=== PATIENT | male | born 1950 | race Caucasian/White ===

== ENCOUNTER 2023-12-01 17:47 | Inpatient (IN) | payer MEDICARE, SELFPAY ==
[2023-12-01 17:54] VITALS: BP 165/79; PULSE 61; RESP 18; TEMP 36.5; O2SAT 93
[2023-12-01 19:15] LABS: Basophils % 0.4 %; Eosinophils # 0.2 10^3/uL (0.0-0.8); Eosinophils % 2.6 %; Lymphocytes % 22.3 %; Mean Corpuscular HGB Conc 32.9 g/dL (30-55); Mean Corpuscular Hemoglobin 27.8 pg (27-33); Mean Corpuscular Volume 84.3 fl (82-101); Mean Platelet Volume 8.2 fL (7.4-10.4); Monocytes # 0.8 10^3/uL (0.2-0.9); Monocytes % 8.5 %; Neutrophils # 5.91 10^3/uL (1.8-7.7); Nucleated Red Blood Cells % 0 %; Platelet Count 151 10^3/cmm (157-399); Red Blood Count 6.05 10^6/uL (3.85-5.65); Red Cell Distribution Width 14.6 % (12.1-15.1); White Blood Count 8.96 10^3/uL (3.29-11.43)
[2023-12-01 19:31] LABS: Alanine Aminotransferase 15 U/L (0-41); Albumin Level 4.3 g/dL (3.5-5.2); Alkaline Phosphatase 69 U/L (40-130); Anion Gap 14.9 (5-19); Aspartate Amino Transferase 17 U/L (0-40); Blood Urea Nitrogen 27 mg/dL (8-23); Calcium 8.7 mg/dL (8.5-10.5); Carbon Dioxide 27 mmol/L (22-29); Chloride 97 mmol/L (98-107); Creatinine Clr Calc Pharmacy 48.2967; Globulin 2.1 g/dL (1.3-4.6); Glucose 103 mg/dL (65-115); Osmolality Calculated 281 mOsm/kg (285-295); Potassium 5.9 mmol/L (3.5-5.1); Sodium 133 mmol/L (136-145); Total Bilirubin 0.6 mg/dL (0.15-1.2); Total Protein 6.4 g/dL (6.6-8.7)
[2023-12-01 19:33] LABS: D Dimer 4.58 ug/mLFEU (0-0.59)
--- NOTE | 2023-12-01 20:48 | ED_ITS ---
Documented by User: Gurjit Almodovar DO 12/02/23 11:31 HPI - Extremity Problem 2 General: Chief complaint: Extremity Problem,Nontraumatic Stated complaint: swollen leg Time Seen by Provider: 12/01/23 20:47 History of Present Illness: Patient presents to the ER with complaints of left lower leg swelling x 1 day. Patient is on Plavix for heart stent he had placed in the past. Patient is never had swelling like this before. Is only the left leg. It is nonpainful to palpate. Nothing seems to make it better or makes it worse. PFSH ED 2 PFSH: Medical History Erectile dysfunction Hypothyroidism Prediabetes Essential (primary) hypertension CAD (coronary artery disease) Surgical History History of heart artery stent x 2 - in 2020 History of angioplasty History of tonsillectomy Family History Father Brain cancer Glaucoma Mother No problems noted. Social History Smoking and tobacco/nicotine status: never used tobacco/nicotine Alcohol intake: current Alcohol intake frequency: few times a month Substance/Drug Use: never Household members: spouse Housing: House Highest education level completed: Bachelor's Degree Current occupational status: retired Physical Exam 2 Const: COMMON NORMALS: no acute distress, average body habitus, patient oriented x3, no limitations, healthy appearing, alert and well nourished HENMT: COMMON NORMALS: normocephalic, atraumatic, hearing grossly normal bilaterally, external ears normal, Normal external nose present, moist oral mucous membranes and oropharynx normal HEAD & SCALP: normocephalic and atraumatic NOSE: Normal external nose present EXTERNAL EAR: Yes external ears normal Neck/C-Spine: COMMON NORMALS: no JVD Chest: COMMONS NORMALS: normal inspection of the chest and normal palpation of entire chest wall Resp: COMMON NORMALS: normal respiratory effort, No retractions, No use of accessory muscles and clear to auscultation bilaterally AUSCULTATION: clear to auscultation bilaterally Cardio: COMMON NORMALS: no JVD, regular rate, regular rhythm, S1 normal heart sound present, S2 normal heart sound present, No gallops present (Cardio), No clicks present (Cardio), No murmurs present (Cardio) and No rub (Cardio) R ATE: regular rate RHYTHM: regular rhythm HEART SOUNDS: S1 normal heart sound present and S2 normal heart sound present Extremity: NARRATIVE EXTREMITY EXAM: Left lower leg edema nontender to palpate, right lower leg normal Neuro: COMMON NORMALS: patient oriented x3 SENSORIUM/ORIENTATION: Yes alert Course 2 Vital Signs: Vital signs: Vital Signs Temperature 97.5 F L 12/04/23 07:52 Pulse Rate 57 L 12/04/23 07:52 Respiratory Rate 20 H 12/04/23 07:52 Blood Pressure 115/69 12/04/23 07:52 Pulse Oximetry 95 12/04/23 07:52 Oxygen Delivery Me thod Room Air 12/04/23 07:52 MDM - Extremity (Nontraumatic) Medical Decision Making Patient lab work done which showed elevated D-dimer, ultrasound of the left lower extremity venous was ordered which showed a extensive blood clot. Patient was handed off to Dr. Cook at shift change. Patient will be admitted. Differential Diagnosis Likely deep vein thrombosis of lower extremity; Unlikely herpes zoster, gout, cellulitis, superficial thrombophlebitis, deep venous thrombosis of upper extremity or lower extremity edema Medical Records I reviewed the patient's medical records. Lab Data I reviewed the patient's lab results. 12/04/23 02:49 12/04/23 02:49 Radiology Impressions Venous Duplex 12/01/23 20:48 IMPRESSION: Extensive deep venous thrombosis seen extending from the left external iliac vein to the veins of the calf. ADDENDUM: 12/01/232226 THIS REPORT CONTAINS FINDINGS THAT MAY BE CRITICAL TO PATIENT CARE. The findings were verbally communicated via telephone conference with Dr. Cook at 10:24 PM CDT on 12/01/2023. The findings were acknowledged and understood. Chest CTA 12/01/23 23:51 IMPRESSION: 1. Right lung largely lower lobe pulmonary emboli, negative for right heart strain given an RV to LV ratio of 0.64. 2. Small hiatal hernia. 3. Right lower lobe superior segment in upper lobe posterior segment subsegmental atelectasis versus minimal infiltrate. 4. Diverticulosis without diverticulitis. ADDENDUM: 12/02/23 0115 THIS REPORT CONTAINS FINDINGS THAT MAY BE CRITICAL TO PATIENT CARE. The findings were verbally communicated via telephone conference with CADE COOK at 1:14 AM CDT on 12/02/2023. The findings were acknowledged and understood. Laboratory Results WBC 8.96 10^3/uL (3.29-11.43) 12/01/23 19:03 RBC 6.05 10^6/uL (3.85-5.65) H 12/01/23 19:03 Hgb 16.80 g/dL (11.27-16.99) 12/01/23 19:03 Hct 51.0 % (37-53) 12/01/23 19:03 MCV 84.3 fl (82-101) 12/01/23 19:03 MCH 27.8 pg (27-33) 12/01/23 19:03 MCHC 32.9 g/dL (30-55) 12/01/23 19:03 RDW 14.6 % (12.1-15.1) 12/01/23 19:03 Plt Count 151 10^3/cmm (157-399) L 12/01/23 19:03 MPV 8.2 fL (7.4-10.4) 12/01/23 19:03 Neut % (Auto) 66.0 % 12/01/23 19:03 Lymph % (Auto) 22.3 % 12/01/23 19:03 Traverse % (Auto) 8.5 % 12/01/23 19:03 Eos % (Auto) 2.6 % 12/01/23 19:03 Baso % (Auto) 0.4 % 12/01/23 19:03 Neut # (Auto) 5.91 10^3/uL (1.8-7.7) 12/01/23 19:03 Lymph # (Auto) 2.0 10^3/uL (0.8-4.8) 12/01/23 19:03 Traverse # (Auto) 0.8 10^3/uL (0.2-0.9) 12/01/23 19:03 Eos # (Auto) 0.2 10^3/uL (0.0-0.8) 12/01/23 19:03 Baso # (Auto) 0.0 10^3/uL (0.0-0.1) 12/01/23 19:03 Nucleated RBC % (auto) 0 % 12/01/23 19:03 Nucleated RBCs # 0.0 /100WBC 12/01/23 19:03 D-Dimer 4.58 ug/mLFEU (0-0.59) H 12/01/23 19:03 Sodium 133 mmol/L (136-145) L 12/01/23 19:03 Potassium 5.9 mmol/L (3.5-5.1) H 12/01/23 19:03 Chloride 97 mmol/L (98-107) L 12/01/23 19:03 Carbon Dioxide 27 mmol/L (22-29) 12/01/23 19:03 Anion Gap 14.9 (5-19) 12/01/23 19:03 BUN 27 mg/dL (8-23) H 12/01/23 19:03 Creatinine 1.4 mg/dL (0.7-1.2) H 12/01/23 19:03 GFR Calculation Not Reportable 12/01/23 19:03 Glucose 103 mg/dL (65-115) 12/01/23 19:03 Estimat Average Glucose 131 12/01/23 19:03 Hemoglobin A1c 6.2 % (4.0-6.0) H 12/01/23 19:03 Calculated Osmolality 281 mOsm/kg (285-295) L 12/01/23 19:03 Calcium 8.7 mg/dL (8.5-10.5) 12/01/23 19:03 Total Bilirubin 0.6 mg/dL (0.15-1.2) 12/01/23 19:03 AST 17 U/L (0-40) 12/01/23 19:03 ALT 15 U/L (0-41) 12/01/23 19:03 Alkaline Phosphatase 69 U/L (40-130) 12/01/23 19:03 Total Protein 6.4 g/dL (6.6-8.7) L 12/01/23 19:03 Albumin 4.3 g/dL (3.5-5.2) 12/01/23 19:03 Globulin 2.1 g/dL (1.3-4.6) 12/01/23 19:03 Vitamin B12 474 pg/mL (232-1245) 12/01/23 19:03 All radiology interpretation(s) finalized by discharge Discharge Plan Discharge Patient Disposition: Admitted As Inpatient Admit Provider: Michael Dumont Clinical Impression: DVT (deep venous thrombosis), Pulmonary embolism Condition: Stable Discharge Diet: Usual diet Discharge Activity: Resume usual activity Coding Level of Care Code ED Preschool Program Director for Chg Fwd Documented by User: Cade Cook MD 12/04/23 13:48 HPI - Extremity Problem 2 General: Chief complaint: Extremity Problem,Nontraumatic Stated complaint: swollen leg Time Seen by Provider: 12/01/23 20:47 Review of Systems 2 General: Reports: 10 or more systems reviewed and unremarkable except in HPI and below Card: Reports: edema (Left lower leg) PFSH ED 2 PFSH: Medical History Erectile dysfunction Hypothyroidism Prediabetes Essential (primary) hypertension CAD (coronary artery disease) Surgical History History of heart artery stent x 2 - in 2020 History of angioplasty History of tonsillectomy Family History Father Brain cancer Glaucoma Mother No problems noted. Social History Smoking and tobacco/nicotine status: never used tobacco/nicotine Alcohol intake: current Alcohol intake frequency: few times a month Substance/Drug Use: never Household members: spouse Housing: House Highest education level completed: Bachelor's Degree Current occupational status: retired Course 2 Vital Signs: Vital signs: Vital Signs Temperature 97.5 F L 12/04/23 07:52 Pulse Rate 57 L 12/04/23 07:52 Respiratory Rate 20 H 12/04/23 07:52 Blood Pressure 115/69 12/04/23 07:52 Pulse Oximetry 95 12/04/23 07:52 Oxygen Delivery Me thod Room Air 12/04/23 07:52 MDM - Extremity (Nontraumatic) Medical Decision Making Patient lab work done which showed elevated D-dimer, ultrasound of the left lower extremity venous was ordered which showed a extensive blood clot. Patient was handed off to Dr. Cook at shift change. Patient will be admitted. I have discussed the patient's case with the off going physician <Dr. Almodovar > and I have assumed care of the patient. We have discussed the current lab/radiographic results that have been resulted and the pending tests. Lab Data 12/04/23 02:49 12/04/23 02:49 Radiology Impressions Venous Duplex 12/01/23 20:48 IMPRESSION: Extensive deep venous thrombosis seen extending from the left external iliac vein to the veins of the calf. ADDENDUM: 12/01/23 2227 THIS REPORT CONTAINS FINDINGS THAT MAY BE CRITICAL TO PATIENT CARE. The findings were verbally communicated via telephone conference with Dr. Cook at 10:24 PM CDT on 12/01/2023. The findings were acknowledged and understood. Chest CTA 12/01/23 23:51 IMPRESSION: 1. Right lung largely lower lobe pulmonary emboli, negative for right heart strain given an RV to LV ratio of 0.64. 2. Small hiatal hernia. 3. Right lower lobe superior segment in upper lobe posterior segment subsegmental atelectasis versus minimal infiltrate. 4. Diverticulosis without diverticulitis. ADDENDUM: 12/02/23 0115 THIS REPORT CONTAINS FINDINGS THAT MAY BE CRITICAL TO PATIENT CARE. The findings were verbally communicated via telephone conference with CADE COOK at 1:14 AM CDT on 12/02/2023. The findings were acknowledged and understood. Laboratory Results WBC 8.96 10^3/uL (3.29-11.43) 12/01/23 19:03 RBC 6.05 10^6/uL (3.85-5.65) H 12/01/23 19:03 Hgb 16.80 g/dL (11.27-16.99) 12/01/23 19:03 Hct 51.0 % (37-53) 12/01/23 19:03 MCV 84.3 fl (82-101) 12/01/23 19:03 MCH 27.8 pg (27-33) 12/01/23 19:03 MCHC 32.9 g/dL (30-55) 12/01/23 19:03 RDW 14.6 % (12.1-15.1) 12/01/23 19:03 Plt Count 151 10^3/cmm (157-399) L 12/01/23 19:03 MPV 8.2 fL (7.4-10.4) 12/01/23 19:03 Neut % (Auto) 66.0 % 12/01/23 19:03 Lymph % (Auto) 22.3 % 12/01/23 19:03 Traverse % (Auto) 8.5 % 12/01/23 19:03 Eos % (Auto) 2.6 % 12/01/23 19:03 Baso % (Auto) 0.4 % 12/01/23 19:03 Neut # (Auto) 5.91 10^3/uL (1.8-7.7) 12/01/23 19:03 Lymph # (Auto) 2.0 10^3/uL (0.8-4.8) 12/01/23 19:03 Traverse # (Auto) 0.8 10^3/uL (0.2-0.9) 12/01/23 19:03 Eos # (Auto) 0.2 10^3/uL (0.0-0.8) 12/01/23 19:03 Baso # (Auto) 0.0 10^3/uL (0.0-0.1) 12/01/23 19:03 Nucleated RBC % (auto) 0 % 12/01/23 19:03 Nucleated RBCs # 0.0 /100WBC 12/01/23 19:03 D-Dimer 4.58 ug/mLFEU (0-0.59) H 12/01/23 19:03 Sodium 133 mmol/L (136-145) L 12/01/23 19:03 Potassium 5.9 mmol/L (3.5-5.1) H 12/01/23 19:03 Chloride 97 mmol/L (98-107) L 12/01/23 19:03 Carbon Dioxide 27 mmol/L (22-29) 12/01/23 19:03 Anion Gap 14.9 (5-19) 12/01/23 19:03 BUN 27 mg/dL (8-23) H 12/01/23 19:03 Creatinine 1.4 mg/dL (0.7-1.2) H 12/01/23 19:03 GFR Calculation Not Reportable 12/01/23 19:03 Glucose 103 mg/dL (65-115) 12/01/23 19:03 Estimat Average Glucose 131 12/01/23 19:03 Hemoglobin A1c 6.2 % (4.0-6.0) H 12/01/23 19:03 Calculated Osmolality 281 mOsm/kg (285-295) L 12/01/23 19:03 Calcium 8.7 mg/dL (8.5-10.5) 12/01/23 19:03 Total Bilirubin 0.6 mg/dL (0.15-1.2) 12/01/23 19:03 AST 17 U/L (0-40) 12/01/23 19:03 ALT 15 U/L (0-41) 12/01/23 19:03 Alkaline Phosphatase 69 U/L (40-130) 12/01/23 19:03 Total Protein 6.4 g/dL (6.6-8.7) L 12/01/23 19:03 Albumin 4.3 g/dL (3.5-5.2) 12/01/23 19:03 Globulin 2.1 g/dL (1.3-4.6) 12/01/23 19:03 Vitamin B12 474 pg/mL (232-1245) 12/01/23 19:03 Discharge Plan Discharge Patient Disposition: Admitted As Inpatient Admit Provider: Micahel Dumont Clinical Impression: DVT (deep venous thrombosis), Pulmonary embolism Condition: Stable Discharge Diet: Usual diet Discharge Activity: Resume usual activity Coding Level of Care Code ED Preschool Program Director for Barbie Diaz
--- NOTE | 2023-12-01 20:48 | USR_ITS ---
PROCEDURE INFORMATION: Exam: US Duplex Left Lower Extremity Veins, Limited Exam date and time: 12/01/2023 9:39 PM Age: 73 years old Clinical indication: Edema, localized; Lower extremity, left; Additional info: Left leg swelling, elevated d dimer TECHNIQUE: Imaging protocol: Real-time duplex ultrasound of the left extremity with 2-D field scale, color Doppler flow and spectral waveform analysis including responses to compression and other maneuvers (when performed) with image documentation. Limited exam focused on the left lower extremity veins. COMPARISON: No relevant prior studies available. FINDINGS: Left deep veins: Extensive deep venous thrombosis seen extending from the left external iliac vein to the veins of the calf. Superficial veins: Greater saphenous vein at the saphenofemoral junction is patent without thrombus. Soft tissues: Unremarkable. US/CV venous duplex [facility] [id number] IMPRESSION: Extensive deep venous thrombosis seen extending from the left external iliac vein to the veins of the calf.
[2023-12-01 21:06] VITALS: BP 155/80; PULSE 54; RESP 18; O2SAT 96
[2023-12-01 22:22] VITALS: BP 148/73; PULSE 56; RESP 18; O2SAT 94
[2023-12-01 22:30] VITALS: BP 117/69; RESP 18; O2SAT 94
[2023-12-01 23:15] VITALS: PULSE 54; O2SAT 93
--- NOTE | 2023-12-01 23:43 | P.HP_ITS ---
Providers/Chief Complaint 2 Primary Care Provider: Jessica Godwin DO Chief Complaint: swollen leg History of Present Illness Lucas Hemphill is a 73 year old male who has recently moved from [place] to [place], patient is stating that he has had multiple trips back and forth duration of trip would be [address], his latest trip was 3 weeks ago, today he woke up not feeling well when he was changing close he noticed his left leg was extremely swollen which was not the case when he went to bed, he has not noticed any chest pain shortness of breath or fever. Stating that his heart rate is always below 60 because he was applied. He carries history of coronary disease with placement of stent few months ago, he is on dual antiplatelet therapy, does not smoke or drink alcohol. Consider himself very active for his age. No history of thrombophilia in the family siblings are healthy. Parents are alive as well. In the ER he has been diagnosed with extensive DVT of left leg I have requested CTA chest, will do heparin bolus Had gwyn discussion with the patient that we are requesting echo and CTA chest but looking at the extensive DVT he might need vascular surgery consult and probably need [place] transfer for thrombolysis but patient is stating that he is okay staying in this hospital to finish the workup, his PCP is Dr. Godwin Review of Systems 2 Const: Denies: fever(s) Eyes: Denies: change in vision ENMT: Denies: throat pain Card: Denies: chest pain Resp: Denies: dyspnea GI: Denies: coffee ground emesis : Denies: flank pain Musc: Reports: extremity pain Skin/Breast: Denies: rash Neuro: Denies: headache(s) Psych: Reports: anxiety Medications/Allergies Home Medications Medication Instructions Recorded Confirmed Last Taken Type aspirin 81 mg tablet,delayed 81 mg PO DAILY 11/08/23 11/08/23 Unknown History release cholecalciferol (vitamin D3) 50 50 mcg PO DAILY 11/08/23 11/08/23 Unknown History mcg (2,000 unit) capsule clopidogrel 75 mg tablet 75 mg PO DAILY #90 tabs 11/08/23 11/08/23 Unknown Rx empagliflozin 10 mg tablet 10 mg PO QAM 11/08/23 11/08/23 Unknown History (Jardiance) levothyroxine 175 mcg tablet 175 mcg PO DAILY 11/08/23 11/08/23 Unknown History lisinopril 20 mg tablet 20 mg PO DAILY 11/08/23 11/08/23 Unknown History magnesium 250 mg tablet 250 mg PO DAILY 11/08/23 11/08/23 Unknown History mecobalamin (vitamin B12) 1,000 1,000 mcg PO DAILY 11/08/23 11/08/23 Unknown History mcg lozenges metoprolol succinate 25 mg 25 mg PO DAILY #90 tabs 11/08/23 11/08/23 Unknown Rx tablet,extended release 24 hr omega-3 fatty acids 1,000 mg 1,000 mg PO DAILY 11/08/23 11/08/23 Unknown History capsule rosuvastatin 40 mg tablet 40 mg PO DAILY 11/08/23 11/08/23 Unknown History tadalafil 5 mg tablet (Cialis) 5 mg PO DAILY 11/08/23 11/08/23 Unknown History ranolazine 1,000 mg 1,000 mg PO BID #60 tabs 11/10/23 Unknown Rx tablet,extended release,12 hr Allergies Allergy/AdvReac Type Severity Reaction Status Date / Time Penicillins Allergy Mild rash Verified 11/08/23 13:38 PFSH Acute 2 PFSH: Medical History Erectile dysfunction Hypothyroidism Prediabetes Essential (primary) hypertension CAD (coronary artery disease) Surgical History History of heart artery stent x 2 - in 2020 History of angioplasty History of tonsillectomy Family History Father Brain cancer Glaucoma Mother No problems noted. Social History Smoking and tobacco/nicotine status: never used tobacco/nicotine Alcohol intake: current Alcohol intake frequency: few times a month Substance/Drug Use: never Household members: spouse Housing: House Highest education level completed: Bachelor's Degree Current occupational status: retired Vitals/I&O/Wt Last Vital Signs Temp 97.7 F 12/01/23 17:54 Pulse 54 L 12/01/23 23:15 Resp 18 12/01/23 22:30 BP 117/69 12/01/23 22:30 Pulse Ox 93 12/01/23 23:15 O2 Del Method Room Air 12/01/23 23:15 Weight last 48 hrs Weight 79.832 kg Physical Exam 2 Narrative: Patient is awake and alert GCS 15 Euvolemic Well-built male Nonfocal neuroexam S1, S2 Left leg is swollen No signs of erythema Pleasant cooperative No active chest pain Data 12/01/23 19:03 12/01/23 19:03 A&P Assessment and plan (1) Prediabetes: (2) Hypothyroidism: Qualifiers: Hypothyroidism type: acquired Qualified Code(s): E03.9 - Hypothyroidism, unspecified (3) DVT (deep venous thrombosis): (4) CESAR (acute kidney injury): (5) Hyperkalemia: Plan Left leg DVT Seems to be provoked secondary to frequent [id number] traveling from [place] to [place] I will also request echo and CTA chest Patient is hemodynamically stable Bradycardia secondary to metoprolol that he takes, patient stating that he is type A personality that is why he needs metoprolol otherwise he feels edgy I will hold off on metoprolol for now I did convey my concerns regarding cardiac complication of saddle embolism massive PE considering extensive DVT patient is okay with staying here getting the workup done Most likely at the time of discharge she will need therapeutic Eliquis dose I will require serial troponin and EKGs for now Monitor blood pressure Full code Cardiac diet Start heparin drip Patient does not carry any history of cancer Acute kidney injury I do not have previous creatinine to compare his kidney function Clinically patient looks dehydrated Hyperkalemia: Given Kayexalate and insulin Hold nephrotoxic agent such as lisinopril His past medical history consistent with hypertension, hypothyroidism, coronary disease and diabetes Attestations 2 Medical Necessity Statement*: More than 2 midnights anticipated Diagnoses Prediabetes R73.03 Acquired hypothyroidism E03.9 Hypothyroidism type: acquired DVT (deep venous thrombosis) I82.409 CESAR (acute kidney injury) N17.9 Hyperkalemia E87.5
--- NOTE | 2023-12-01 23:51 | CTR_ITS ---
PROCEDURE INFORMATION: Exam: CTA Chest With Contrast Exam date and time: 12/02/2023 12:39 AM Age: 73 years old Clinical indication: Cough; Additional info: Cough with h/o dvt and confirmed clot extension TECHNIQUE: Imaging protocol: Computed tomographic angiography of the chest with contrast. Exam focused on the arteries. 3D rendering (Not supervised by radiologist): MIP and/or 3D reconstructed images were created by the technologist. Radiation optimization: All CT scans at this facility use at least one of these dose optimization techniques: automated exposure control; mA and/or kV adjustment per patient size (includes targeted exams where dose is matched to clinical indication); or iterative reconstruction. Contrast material: OMNI 350; Contrast volume: 80 ml; Contrast route: INTRAVENOUS (IV); COMPARISON: No relevant prior studies available. RADIATION DOSE METRICS: Total DLP (mGy-cm): 387.62 FINDINGS: Pulmonary arteries: Right lung largely lower lobe pulmonary emboli, negative for right heart strain given an RV to LV ratio of 0.64. Aorta: Unremarkable. No aortic aneurysm. No aortic dissection. Lungs: Right lower lobe superior segment in upper lobe posterior segment subsegmental atelectasis versus minimal infiltrate. Pleural spaces: Unremarkable. No pneumothorax. No pleural effusion. Heart: Unremarkable. No cardiomegaly. No pericardial effusion. Lymph nodes: Unremarkable. No enlarged lymph nodes. Diaphragm: Small hiatal hernia. Stomach and bowel: Diverticulosis without diverticulitis. Bones/joints: Unremarkable. No acute fracture. Soft tissues: Unremarkable. CT/CT angio chest PE protcl [id number] IMPRESSION: 1. Right lung largely lower lobe pulmonary emboli, negative for right heart strain given an RV to LV ratio of 0.64. 2. Small hiatal hernia. 3. Right lower lobe superior segment in upper lobe posterior segment subsegmental atelectasis versus minimal infiltrate. 4. Diverticulosis without diverticulitis.
[2023-12-02] VITALS (10 sets, daily range): BP systolic 115–148; BP diastolic 70–90; PULSE 57–91; RESP 14–18; TEMP 36.4–36.8; O2SAT 89–95; BMI 28.5; BMI 27.6
[2023-12-02] MEDS: heparin 5,000 unit/mL INJ 1 mL 4000 UNIT IVP (00:06)
[2023-12-02] MEDS: iohexol 350 mg/mL 500 mL Btl (per mL) IV (00:45)
[2023-12-02] MEDS: insulin regular-human 100 units/1 mL 10 UNIT IVP (00:47)
[2023-12-02] MEDS: sodium polystyrene sulfonate 15 gm/60 mL Btl PO (00:48)
[2023-12-02] MEDS: glucose 40% Gel 15 gm UDC PO (00:48)
[2023-12-02] MEDS: heparin drip 25,000 UNIT/500 ML PREMIX 19.1600000000000001 UNIT IV (00:49)
--- NOTE | 2023-12-02 01:00 | USCV_ITS ---
Lucas Hemphill Age: 73 Gender: M : 1950 Exam Date: 12/02/2023 02:43 Ordering Phys: Michael Dumont MD Technologist: RISHI [place] [facility] [place]: pulmonary emboli, extensive, heavy-burden DVT LLE. No history of cardiac intervention. BP: 148 / 80 HR: 62 Rhythm: Sinus Technical Quality: Adequate MEASUREMENTS (Male / Female) Normal Values 2D ECHO LV Diastolic Diameter PLAX 4.8 cm 4.2 - 5.9 / 3.9 - 5.3 cm IVS Diastolic Thickness 1.3 cm 0.6 - 1.0 / 0.6 - 0.9 cm IVS Systolic Thickness 2.1 cm LVPW Diastolic Thickness 1.3 cm 0.6 - 1.0 / 0.6 - 0.9 cm LVPW Systolic Thickness 2.0 cm LVOT Diameter 1.9 cm LV Ejection Fraction 2D Teich 73.9 % LV Ejection Fraction MOD 2C 68.2 % LV Ejection Fraction 2C AL 71.3 % LA Diameter 3.9 cm Aorta at Sinotubular Diameter 2.9 cm IVC Diameter 1.2 cm M-MODE LA Ao Ratio MM 1.2 AV Cusp Separation MM 2.1 cm DOPPLER AV Peak Velocity 123.0 cm/s LVOT Peak Velocity 103.0 cm/s AV Area Cont Eq vti 2.3 cm squared AV Area Cont Eq pk 2.3 cm squared MV Peak Velocity 104.0 cm/s MV Area PHT 2.9 cm squared Mitral E to A Ratio 0.8 TV Peak E Velocity 48.0 cm/s PV Peak Velocity 121.0 cm/s FINDINGS Left Ventricle Normal left ventricular size and systolic function, EF 68%.. No regional wall motion abnormalities. Mild left ventricular hypertrophy. Grade I/IV diastolic dysfunction (abnormal relaxation filling pattern), normal to mildly elevated filling pressures. Right Ventricle The right ventricle is normal in size and function. Right Atrium The right atrium is normal in size. Left Atrium Mildly increased left atrial size. Mitral Valve No gross abnormalities noted no gross abnormalities noted Aortic Valve Trace aortic valve regurgitation. Tricuspid Valve No gross abnormalities noted Pulmonic Valve Trace pulmonary valve regurgitation. Pericardium Normal pericardium without effusion. Aorta Normal ascending aorta dimension. IVC Normal inferior vena cava. CONCLUSIONS Normal left ventricular size and systolic function, EF 68%.. No regional wall motion abnormalities. Mild left ventricular hypertrophy. Grade I/IV diastolic dysfunction (abnormal relaxation filling pattern), normal to mildly elevated filling pressures. Mildly increased left atrial size. Trace aortic valve regurgitation. Trace pulmonary valve regurgitation. There is no pericardial effusion. There are no intracardiac masses. No similar previous studies are available for comparison Dr Davian Alegria MD [facility] (Electronically Signed) Final Date: 02 December 2023 09:34 S
[2023-12-02 01:27] LABS: Estmated Average Glucose 131; Hemoglobin A1C 6.2 % (4.0-6.0)
[2023-12-02] MEDS: heparin drip 25,000 UNIT/500 ML PREMIX 22.3500000000000014 UNIT IV (01:31)
[2023-12-02 01:47] LABS: Vitamin B12 474 pg/mL (232-1245)
[2023-12-02 07:27] LABS: Basophils % 0.6 %; Eosinophils # 0.3 10^3/uL (0.0-0.8); Lymphocytes # 1.8 10^3/uL (0.8-4.8); Lymphocytes % 27.2 %; Mean Corpuscular HGB Conc 32.7 g/dL (30-55); Mean Corpuscular Hemoglobin 27.7 pg (27-33); Mean Corpuscular Volume 84.7 fl (82-101); Mean Platelet Volume 8.3 fL (7.4-10.4); Monocytes # 0.5 10^3/uL (0.2-0.9); Monocytes % 7.8 %; Neutrophils # 4.07 10^3/uL (1.8-7.7); Neutrophils % 60.1 %; Nucleated Red Blood Cells % 0 %; Platelet Count 124 10^3/cmm (157-399); Red Blood Count 6.02 10^6/uL (3.85-5.65); White Blood Count 6.77 10^3/uL (3.29-11.43)
[2023-12-02 07:51] LABS: Magnesium 2.1 mg/dL (1.7-2.3); Phosphorus 3.7 mg/dL (2.5-4.5)
[2023-12-02 07:52] LABS: Anion Gap 14.4 (5-19); Blood Urea Nitrogen 20 mg/dL (8-23); C Reactive Protein 8.9 mg/L (0.0-4.9); Calcium 8.7 mg/dL (8.5-10.5); Carbon Dioxide 24 mmol/L (22-29); Chloride 99 mmol/L (98-107); Creatinine Clr Calc Pharmacy 61.4686; Glucose 107 mg/dL (65-115); Osmolality Calculated 279 mOsm/kg (285-295); Potassium 4.4 mmol/L (3.5-5.1); Sodium 133 mmol/L (136-145)
[2023-12-02 08:00] LABS: Partial Thromboplastin Time 98.6 SECONDS (23.9-36.7)
[2023-12-02] MEDS: atorvastatin 40 mg Tablet 80 MG PO (09:22)
[2023-12-02] MEDS: levothyroxine 175 mcg Tablet PO (09:22)
--- NOTE | 2023-12-02 13:55 | PC.SOCIAL ---
IMM Update pg 2 of IMM updated and reviewed w/ patient. Copy provided and Copy dated, initialed and placed in chart.
--- NOTE | 2023-12-02 16:05 | P.PN_ITS ---
Subjective 2 Subjective: Overnight labs and H&P reviewed. Left leg continues to be swollen. No aberrant progression compared to yesterday. CTA of the chest revealed right-sided lower lobe PE. No evidence of right heart strain Medications: Reviewed: Yes Vitals/I&O/Wt Last Vital Signs Temp 98.3 F 12/02/23 11:56 Pulse 79 12/02/23 11:56 Resp 16 12/02/23 11:56 BP 127/74 12/02/23 11:56 Pulse Ox 93 12/02/23 11:56 O2 Del Method Room Air 12/02/23 11:56 12/02/23 12/02/23 12/02/23 06:59 14:59 22:59 Intake Total 240 / 240 661.78 / 661.78 Output Total 680 / 680 Balance 240 / 240 -18.22 / -18.22 Weight last 48 hrs Weight 79.832 kg Weight 82.554 kg Weight 79.832 kg Physical Exam 2 Narrative: General: No acute distress, AO x3 HEENT: PERRLA, pupils bilaterally equal and reactive, pallors not present Chest: Normal vesicular breath sounds, no added sounds, equal good air entry bilaterally CVS: S1-S2 regular, no murmurs, no tachycardia, no gallops, no rubs Abdomen: Soft, nontender, no organomegaly, bowel sounds present Neuro: No focal deficits, no facial deformity, AO x3, power 5/5 in all limbs Extremities: Left leg swollen, erythematous, warm compared to the right side. No signs of cerulea phlegmasia Dolens Data 12/02/23 07:18 12/02/23 07:18 Other data: Radiology Impressions Venous Duplex 12/01/23 20:48 IMPRESSION: Extensive deep venous thrombosis seen extending from the left external iliac vein to the veins of the calf. ADDENDUM: 12/01/232226 THIS REPORT CONTAINS FINDINGS THAT MAY BE CRITICAL TO PATIENT CARE. The findings were verbally communicated via telephone conference with Dr. Grier at 10:24 PM CDT on 12/01/2023. The findings were acknowledged and understood. Chest CTA 12/01/23 23:51 IMPRESSION: 1. Right lung largely lower lobe pulmonary emboli, negative for right heart strain given an RV to LV ratio of 0.64. 2. Small hiatal hernia. 3. Right lower lobe superior segment in upper lobe posterior segment subsegmental atelectasis versus minimal infiltrate. 4. Diverticulosis without diverticulitis. ADDENDUM: 12/02/23 0115 THIS REPORT CONTAINS FINDINGS THAT MAY BE CRITICAL TO PATIENT CARE. The findings were verbally communicated via telephone conference with RODRIGUEZ GRIER at 1:14 AM CDT on 12/02/2023. The findings were acknowledged and understood. Laboratory Results WBC 6.77 10^3/uL (3.29-11.43) 12/02/23 07:18 RBC 6.02 10^6/uL (3.85-5.65) H 12/02/23 07:18 Hgb 16.70 g/dL (11.27-16.99) 12/02/23 07:18 Hct 51.0 % (37-53) 12/02/23 07:18 MCV 84.7 fl (82-101) 12/02/23 07:18 MCH 27.7 pg (27-33) 12/02/23 07:18 MCHC 32.7 g/dL (30-55) 12/02/23 07:18 RDW 15.0 % (12.1-15.1) 12/02/23 07:18 Plt Count 124 10^3/cmm (157-399) L 12/02/23 07:18 MPV 8.3 fL (7.4-10.4) 12/02/23 07:18 Neut % (Auto) 60.1 % 12/02/23 07:18 Lymph % (Auto) 27.2 % 12/02/23 07:18 [place] % (Auto) 7.8 % 12/02/23 07:18 Eos % (Auto) 4.0 % 12/02/23 07:18 Baso % (Auto) 0.6 % 12/02/23 07:18 Neut # (Auto) 4.07 10^3/uL (1.8-7.7) 12/02/23 07:18 Lymph # (Auto) 1.8 10^3/uL (0.8-4.8) 12/02/23 07:18 [place] # (Auto) 0.5 10^3/uL (0.2-0.9) 12/02/23 07:18 Eos # (Auto) 0.3 10^3/uL (0.0-0.8) 12/02/23 07:18 Baso # (Auto) 0.0 10^3/uL (0.0-0.1) 12/02/23 07:18 Nucleated RBC % (auto) 0 % 12/02/23 07:18 Nucleated RBCs # 0.0 /100WBC 12/02/23 07:18 APTT 98.6 SECONDS (23.9-36.7) H 12/02/23 07:18 D-Dimer 4.58 ug/mLFEU (0-0.59) H 12/01/23 19:03 Sodium 133 mmol/L (136-145) L 12/02/23 07:18 Potassium 4.4 mmol/L (3.5-5.1) 12/02/23 07:18 Chloride 99 mmol/L (98-107) 12/02/23 07:18 Carbon Dioxide 24 mmol/L (22-29) 12/02/23 07:18 Anion Gap 14.4 (5-19) 12/02/23 07:18 BUN 20 mg/dL (8-23) 12/02/23 07:18 Creatinine 1.1 mg/dL (0.7-1.2) 12/02/23 07:18 GFR Calculation Not Reportable 12/02/23 07:18 Glucose 107 mg/dL (65-115) 12/02/23 07:18 Estimat Average Glucose 131 12/01/23 19:03 Hemoglobin A1c 6.2 % (4.0-6.0) H 12/01/23 19:03 Calculated Osmolality 279 mOsm/kg (285-295) L 12/02/23 07:18 Calcium 8.7 mg/dL (8.5-10.5) 12/02/23 07:18 Phosphorus 3.7 mg/dL (2.5-4.5) 12/02/23 07:18 Magnesium 2.1 mg/dL (1.7-2.3) 12/02/23 07:18 Total Bilirubin 0.6 mg/dL (0.15-1.2) 12/01/23 19:03 AST 17 U/L (0-40) 12/01/23 19:03 ALT 15 U/L (0-41) 12/01/23 19:03 Alkaline Phosphatase 69 U/L (40-130) 12/01/23 19:03 C-Reactive Protein 8.9 mg/L (0.0-4.9) H 12/02/23 07:18 Total Protein 6.4 g/dL (6.6-8.7) L 12/01/23 19:03 Albumin 4.3 g/dL (3.5-5.2) 12/01/23 19:03 Globulin 2.1 g/dL (1.3-4.6) 12/01/23 19:03 Vitamin B12 474 pg/mL (232-1245) 12/01/23 19:03 A&P Assessment and plan (1) Prediabetes: (2) Hypothyroidism: Qualifiers: Hypothyroidism type: acquired Qualified Code(s): E03.9 - Hypothyroidism, unspecified (3) DVT (deep venous thrombosis): Qualifiers: Affected thrombotic vein of extremity: unspecified vein of extremity C hronicity: acute DVT location: lower extremity Laterality: left Qualified Code(s): I82.402 - Acute embolism and thrombosis of unspecified deep veins of left lower extremity (4) CESAR (acute kidney injury): (5) Hyperkalemia: Plan Left leg DVT Seems to be provoked secondary to frequent [id number] traveling from [place] to [place] I will also request echo and CTA chest Patient is hemodynamically stable Bradycardia secondary to metoprolol that he takes, patient stating that he is type A personality that is why he needs metoprolol otherwise he feels edgy I will hold off on metoprolol for now I did convey my concerns regarding cardiac complication of saddle embolism massive PE considering extensive DVT patient is okay with staying here getting the workup done Most likely at the time of discharge she will need therapeutic Eliquis dose I will require serial troponin and EKGs for now Monitor blood pressure Full code Cardiac diet Start heparin drip Patient does not carry any history of cancer Acute kidney injury I do not have previous creatinine to compare his kidney function Clinically patient looks dehydrated Hyperkalemia: Given Kayexalate and insulin Hold nephrotoxic agent such as lisinopril His past medical history consistent with hypertension, hypothyroidism, coronary disease and diabetes Plan for today December 02, 2023. Patient noted to have extensive left lower extremity DVT and also her right lower lobe PE. No signs of right heart strain. Plan to continue heparin drip for 48 hours given high risk of progression given extensive lower extremity DVT. Should patient continue to show clinical stability at 48 hours plan to transition to oral Eliquis at the time of discharge. Currently saturating well on room air. Patient reports a history of coronary artery disease, last stent was placed over 4 years ago. He is currently on aspirin and Plavix. Plan to change to Plavix and Eliquis at time of discharge with discontinuation of aspirin. Attestations 2 Medical Necessity Statement*: Continued admission for anticoagulation, heparin drip, close monitoring for any progression of VTE. Coding Level of Care Code Acute Code for Chg Fwd High MDM includes number and complexity of problems actively addressed during encounter, amount and/or complexity of data reviewed/ordered and described risk of complication, morbidity or mortality of management as documented Diagnoses Prediabetes R73.03 Acquired hypothyroidism E03.9 Hypothyroidism type: acquired DVT (deep venous thrombosis) I82.402 Affected thrombotic vein of extremity: unspecified vein of extremity Chronicity: acute DVT location: lower extremity Laterality: left CESAR (acute kidney injury) N17.9 Hyperkalemia E87.5
[2023-12-02 19:46] LABS: Partial Thromboplastin Time 43.5 SECONDS (23.9-36.7)
[2023-12-02] MEDS: heparin 5,000 unit/mL INJ 1 mL IV (20:28)
--- NOTE | 2023-12-02 21:13 | PC.NURSE ---
patient had two active heparin gtt orders. called and got the order to dc the heparin gtt from the ER on 12/01/21. the patient had been titrated and running off the current approved protocol/ gtt order since his arrival on the floor at 0100 12/02/23. the ER heparin gtt order was marked as wasted in NOV and discontinued at 1930.
[2023-12-03] VITALS (9 sets, daily range): BP systolic 107–144; BP diastolic 63–77; PULSE 55–76; RESP 15–18; TEMP 36.4–36.9; O2SAT 92–97
[2023-12-03 02:02] LABS: Basophils % 0.4 %; Eosinophils # 0.3 10^3/uL (0.0-0.8); Eosinophils % 3.8 %; Hematocrit 49.1 % (37-53); Lymphocytes # 1.9 10^3/uL (0.8-4.8); Lymphocytes % 27.9 %; Mean Corpuscular Hemoglobin 27.9 pg (27-33); Mean Corpuscular Volume 84.5 fl (82-101); Mean Platelet Volume 7.8 fL (7.4-10.4); Monocytes # 0.6 10^3/uL (0.2-0.9); Monocytes % 8.7 %; Neutrophils # 4.03 10^3/uL (1.8-7.7); Neutrophils % 59.1 %; Nucleated Red Blood Cells % 0 %; Platelet Count 118 10^3/cmm (157-399); Red Blood Count 5.81 10^6/uL (3.85-5.65); Red Cell Distribution Width 14.8 % (12.1-15.1); White Blood Count 6.82 10^3/uL (3.29-11.43)
[2023-12-03] MEDS: heparin drip 25,000 UNIT/500 ML PREMIX 20 UNIT IV (02:07)
[2023-12-03 02:26] LABS: Alanine Aminotransferase 13 U/L (0-41); Albumin Level 3.8 g/dL (3.5-5.2); Alkaline Phosphatase 59 U/L (40-130); Anion Gap 11.2 (5-19); Aspartate Amino Transferase 15 U/L (0-40); Blood Urea Nitrogen 17 mg/dL (8-23); Calcium 8.4 mg/dL (8.5-10.5); Carbon Dioxide 28 mmol/L (22-29); Chloride 102 mmol/L (98-107); Creatinine Clr Calc Pharmacy 67.6154; Globulin 2.2 g/dL (1.3-4.6); Glucose 96 mg/dL (65-115); Osmolality Calculated 285 mOsm/kg (285-295); Potassium 4.2 mmol/L (3.5-5.1); Sodium 137 mmol/L (136-145); Total Bilirubin 0.5 mg/dL (0.15-1.2)
[2023-12-03 09:27] LABS: Partial Thromboplastin Time 51.5 SECONDS (23.9-36.7)
[2023-12-03] MEDS: levothyroxine 175 mcg Tablet PO (10:04)
[2023-12-03] MEDS: atorvastatin 40 mg Tablet 80 MG PO (10:04)
--- NOTE | 2023-12-03 15:22 | P.PN_ITS ---
Subjective 2 Subjective: His leg is improving today. reduce swelling. Reduced erythema. He has been able to walk and ambulate without difficulty.. Medications: Reviewed: Yes Vitals/I&O/Wt Last Vital Signs Temp 97.5 F L 12/03/23 08:00 Pulse 61 12/03/23 08:00 Resp 16 12/03/23 08:00 BP 144/76 12/03/23 08:00 Pulse Ox 93 12/03/23 08:00 O2 Del Method Room Air 12/03/23 08:00 12/03/23 12/03/23 12/03/23 06:59 14:59 22:59 Intake Total 127.333 / 1958.746 254.8 / 254.8 Balance 127.333 / 1278.746 254.8 / 254.8 Weight last 48 hrs Weight 81.845 kg Weight 79.832 kg Weight 82.554 kg Weight 79.832 kg Physical Exam 2 Narrative: General: No acute distress, AO x3 HEENT: PERRLA, pupils bilaterally equal and reactive, pallors not present Chest: Normal vesicular breath sounds, no added sounds, equal good air entry bilaterally CVS: S1-S2 regular, no murmurs, no tachycardia, no gallops, no rubs Abdomen: Soft, nontender, no organomegaly, bowel sounds present Neuro: No focal deficits, no facial deformity, AO x3, power 5/5 in all limbs Extremities: Left leg swollen, erythematous, warm compared to the right side. improved over yesterday Data 12/03/23 01:54 12/03/23 01:54 A&P Assessment and plan (1) Prediabetes: (2) Hypothyroidism: Qualifiers: Hypothyroidism type: acquired Qualified Code(s): E03.9 - Hypothyroidism, unspecified (3) DVT (deep venous thrombosis): Qualifiers: Affected thrombotic vein of extremity: unspecified vein of extremity C hronicity: acute DVT location: lower extremity Laterality: left Qualified Code(s): I82.402 - Acute embolism and thrombosis of unspecified deep veins of left lower extremity (4) CESAR (acute kidney injury): (5) Hyperkalemia: Plan Left leg DVT Seems to be provoked secondary to frequent [id number] traveling from [place] to [place] I will also request echo and CTA chest Patient is hemodynamically stable Bradycardia secondary to metoprolol that he takes, patient stating that he is type A personality that is why he needs metoprolol otherwise he feels edgy I will hold off on metoprolol for now I did convey my concerns regarding cardiac complication of saddle embolism massive PE considering extensive DVT patient is okay with staying here getting the workup done Most likely at the time of discharge she will need therapeutic Eliquis dose I will require serial troponin and EKGs for now Monitor blood pressure Full code Cardiac diet Start heparin drip Patient does not carry any history of cancer Acute kidney injury I do not have previous creatinine to compare his kidney function Clinically patient looks dehydrated Hyperkalemia: Given Kayexalate and insulin Hold nephrotoxic agent such as lisinopril His past medical history consistent with hypertension, hypothyroidism, coronary disease and diabetes Plan for today December 02, 2023. Patient noted to have extensive left lower extremity DVT and also her right lower lobe PE. No signs of right heart strain. Plan to continue heparin drip for 48 hours given high risk of progression given extensive lower extremity DVT. Should patient continue to show clinical stability at 48 hours plan to transition to oral Eliquis at the time of discharge. Currently saturating well on room air. Patient reports a history of coronary artery disease, last stent was placed over 4 years ago. He is currently on aspirin and Plavix. Plan to change to Plavix and Eliquis at time of discharge with discontinuation of aspirin. Plan for today December 03, 2023. Left lower extremity is improving. Patient is stable on room air. He is able to ambulate using this leg. Plan to continue heparin drip for 48 hours until tonight and then transition to Eliquis. Anticipate discharge in the upcoming 24 hours if patient continues to do well. Resume home dose of Plavix, metoprolol, Jardiance, lisinopril and Ranexa. Attestations 2 Medical Necessity Statement*: Continued use of heparin drip, transition to oral a/c over the next 24 hrs Coding Level of Care Code Acute Code for Chg Fwd Diagnoses Prediabetes R73.03 Acquired hypothyroidism E03.9 Hypothyroidism type: acquired DVT (deep venous thrombosis) I82.402 Affected thrombotic vein of extremity: unspecified vein of extremity Chronicity: acute DVT location: lower extremity Laterality: left CESAR (acute kidney injury) N17.9 Hyperkalemia E87.5
[2023-12-03] MEDS: clopidogrel 75 mg Tablet PO (15:57)
[2023-12-03] MEDS: lisinopril 20 mg Tablet PO (15:57)
[2023-12-03] MEDS: ranolazine (12HR) 500 mg Tablet 1000 MG PO (17:34)
[2023-12-03 23:48] LABS: Partial Thromboplastin Time 55.9 SECONDS (23.9-36.7)
[2023-12-04] VITALS: BP 117/68; PULSE 59; RESP 16; TEMP 36.7; O2SAT 96
[2023-12-04] MEDS: heparin drip 25,000 UNIT/500 ML PREMIX 22 UNIT IV (01:59)
[2023-12-04 03:47] LABS: Basophils % 0.5 %; Eosinophils # 0.2 10^3/uL (0.0-0.8); Eosinophils % 3.4 %; Hematocrit 48.3 % (37-53); Lymphocytes # 1.7 10^3/uL (0.8-4.8); Lymphocytes % 27.1 %; Mean Corpuscular HGB Conc 32.3 g/dL (30-55); Mean Corpuscular Hemoglobin 27.6 pg (27-33); Mean Corpuscular Volume 85.5 fl (82-101); Mean Platelet Volume 8.5 fL (7.4-10.4); Monocytes # 0.7 10^3/uL (0.2-0.9); Monocytes % 11.2 %; Neutrophils # 3.58 10^3/uL (1.8-7.7); Neutrophils % 57.5 %; Nucleated Red Blood Cells % 0 %; Platelet Count 126 10^3/cmm (157-399); Red Blood Count 5.65 10^6/uL (3.85-5.65); Red Cell Distribution Width 14.8 % (12.1-15.1); White Blood Count 6.23 10^3/uL (3.29-11.43)
[2023-12-04 04:00] VITALS: BP 121/73; PULSE 55; RESP 17; TEMP 36.7; O2SAT 98
[2023-12-04 04:14] LABS: Alanine Aminotransferase 14 U/L (0-41); Albumin Level 3.6 g/dL (3.5-5.2); Alkaline Phosphatase 57 U/L (40-130); Anion Gap 12.1 (5-19); Aspartate Amino Transferase 15 U/L (0-40); Blood Urea Nitrogen 14 mg/dL (8-23); Calcium 8.7 mg/dL (8.5-10.5); Carbon Dioxide 28 mmol/L (22-29); Chloride 101 mmol/L (98-107); Creatinine Clr Calc Pharmacy 75.9732; Globulin 2.2 g/dL (1.3-4.6); Glucose 112 mg/dL (65-115); Osmolality Calculated 285 mOsm/kg (285-295); Potassium 4.1 mmol/L (3.5-5.1); Sodium 137 mmol/L (136-145); Total Bilirubin 0.6 mg/dL (0.15-1.2); Total Protein 5.8 g/dL (6.6-8.7)
[2023-12-04 06:00] VITALS: PULSE 63
[2023-12-04] MEDS: apixaban 5 mg Tablet 10 MG PO (06:06)
[2023-12-04 07:52] VITALS: BP 115/69; PULSE 57; RESP 20; TEMP 36.4; O2SAT 95
[2023-12-04] MEDS: pantoprazole DR 40 mg Tablet PO (08:56)
[2023-12-04] MEDS: metoprolol succinate ER (24 HR) 25 mg Tablet PO (08:56)
[2023-12-04] MEDS: lisinopril 20 mg Tablet PO (08:56)
[2023-12-04] MEDS: clopidogrel 75 mg Tablet PO (08:56)
[2023-12-04] MEDS: levothyroxine 175 mcg Tablet PO (08:56)
[2023-12-04] MEDS: atorvastatin 40 mg Tablet 80 MG PO (08:56)
[2023-12-04] MEDS: ranolazine (12HR) 500 mg Tablet 1000 MG PO (08:57)
--- NOTE | 2023-12-04 17:14 | PM.DCS ---
Discharge Providers Date of Admission: 12/02/23 01:00 Date of Discharge: December 04, 2023 Attending Provider at Admission: Michael Dumont MD Attending Provider at Discharge: Paz Mace MD Primary Care Provider: eJssica Godwin DO Diagnoses at Discharge Discharge Diagnosis (1) Prediabetes: Status: Acute (2) Hypothyroidism: Status: Acute Qualifiers: Hypothyroidism type: acquired Qualified Code(s): E03.9 - Hypothyroidism, unspecified (3) DVT (deep venous thrombosis): Status: Acute Qualifiers: Affected thrombotic vein of extremity: unspecified vein of extremity Chronicity: acute DVT location: lower extremity Laterality: left Qualified Code(s): I82.402 - Acute embolism and thrombosis of unspecified deep veins of left lower extremity (4) CESAR (acute kidney injury): Status: Acute (5) Hyperkalemia: Status: Acute (6) Pulmonary embolism: Status: Acute Qualifiers: Pulmonary embolism type: multiple subsegmental (without acute cor pulmonale) Qualified Code(s): I26.94 - Multiple subsegmental pulmonary emboli without acute cor pulmonale Reason for Visit Reason for Visit: swollen leg Hospital Course Hospital Course 73-year-old man with a past medical history of coronary artery disease, last stents placed 4 years ago presented to the hospital with left lower extremity swelling after having had multiple trips back and forth to [place] recently. Last trip was 3 weeks ago. He also had some night time dyspnea. He was found to have LLE extensive DVT as noted below and also a RLL pulmonary embolism. He received treatment with heparin drip for anticoagulation. His left lower extremity was significantly improving after 48 hours of anticoagulation. There is less swelling, rested tenderness, less warmth. He remained on room air during the course of his admission. He was started on Eliquis 10 mg twice daily for 1 week followed by 5 mg twice daily for the next 3 months for treatment of DVT and PE. Appears to be a provoked VTE episode based on history alone. However patient was interested in exploring any genetic predisposition and was referred to hematology for further evaluation per request. Patient had previously been on dual antiplatelet therapy with aspirin and Plavix. With initiation of Eliquis, aspirin was discontinued and patient has been continued on Plavix and Eliquis going forward. Last stents were 4 years ago. Recommended to follow-up with primary care provider in the next 7 to 10 days to assess for continued response. Anticipate minimum 3 months of anticoagulation at this point in time. Physical Exam Narrative: General: No acute distress, AO x3 HEENT: PERRLA, pupils bilaterally equal and reactive, pallors not present Chest: Normal vesicular breath sounds, no added sounds, equal good air entry bilaterally CVS: S1-S2 regular, no murmurs, no tachycardia, no gallops, no rubs Abdomen: Soft, nontender, no organomegaly, bowel sounds present Neuro: No focal deficits, no facial deformity, AO x3, power 5/5 in all limbs Extremities: improving LLE swelling, tenderness and warmth Discharge Data Studies Completed and Pending Completed Studies During Hospitalization Category Date Time Status CTA chest [CT angio chest PE protcl [id number]] Stat Cat Scan 12/01/23 23:51 Completed CV. echo complete* [id number] Routine Ultrasound 12/02/23 01:00 Completed US venous duplex lower extremity LT [CV venous duplex Ultrasound 12/01/23 20:48 [place] [id number]] Stat Pending at discharge Category Date Time Status Antiphospholipid Antibody Walter Routine Lab 12/02/23 00:45 Received Radiology Impressions Venous Duplex 12/01/23 20:48 IMPRESSION: Extensive deep venous thrombosis seen extending from the left external iliac vein to the veins of the calf. ADDENDUM: 12/01/23 2227 THIS REPORT CONTAINS FINDINGS THAT MAY BE CRITICAL TO PATIENT CARE. The findings were verbally communicated via telephone conference with Dr. Cook at 10:24 PM CDT on 12/01/2023. The findings were acknowledged and understood. Chest CTA 12/01/23 23:51 IMPRESSION: 1. Right lung largely lower lobe pulmonary emboli, negative for right heart strain given an RV to LV ratio of 0.64. 2. Small hiatal hernia. 3. Right lower lobe superior segment in upper lobe posterior segment subsegmental atelectasis versus minimal infiltrate. 4. Diverticulosis without diverticulitis. ADDENDUM: 12/02/23 0115 THIS REPORT CONTAINS FINDINGS THAT MAY BE CRITICAL TO PATIENT CARE. The findings were verbally communicated via telephone conference with RODRIGUEZ COOK at 1:14 AM CDT on 12/02/2023. The findings were acknowledged and understood. Laboratory Results WBC 6.23 10^3/uL (3.29-11.43) 12/04/23 02:49 RBC 5.65 10^6/uL (3.85-5.65) 12/04/23 02:49 Hgb 15.60 g/dL (11.27-16.99) 12/04/23 02:49 Hct 48.3 % (37-53) 12/04/23 02:49 MCV 85.5 fl (82-101) 12/04/23 02:49 MCH 27.6 pg (27-33) 12/04/23 02:49 MCHC 32.3 g/dL (30-55) 12/04/23 02:49 RDW 14.8 % (12.1-15.1) 12/04/23 02:49 Plt Count 126 10^3/cmm (157-399) L 12/04/23 02:49 MPV 8.5 fL (7.4-10.4) 12/04/23 02:49 Neut % (Auto) 57.5 % 12/04/23 02:49 Lymph % (Auto) 27.1 % 12/04/23 02:49 [place] % (Auto) 11.2 % 12/04/23 02:49 Eos % (Auto) 3.4 % 12/04/23 02:49 Baso % (Auto) 0.5 % 12/04/23 02:49 Neut # (Auto) 3.58 10^3/uL (1.8-7.7) 12/04/23 02:49 Lymph # (Auto) 1.7 10^3/uL (0.8-4.8) 12/04/23 02:49 [place] # (Auto) 0.7 10^3/uL (0.2-0.9) 12/04/23 02:49 Eos # (Auto) 0.2 10^3/uL (0.0-0.8) 12/04/23 02:49 Baso # (Auto) 0.0 10^3/uL (0.0-0.1) 12/04/23 02:49 Nucleated RBC % (auto) 0 % 12/04/23 02:49 Nucleated RBCs # 0.0 /100WBC 12/04/23 02:49 APTT 55.9 SECONDS (23.9-36.7) H 12/03/23 22:59 D-Dimer 4.58 ug/mLFEU (0-0.59) H 12/01/23 19:03 Sodium 137 mmol/L (136-145) 12/04/23 02:49 Potassium 4.1 mmol/L (3.5-5.1) 12/04/23 02:49 Chloride 101 mmol/L (98-107) 12/04/23 02:49 Carbon Dioxide 28 mmol/L (22-29) 12/04/23 02:49 Anion Gap 12.1 (5-19) 12/04/23 02:49 BUN 14 mg/dL (8-23) 12/04/23 02:49 Creatinine 0.9 mg/dL (0.7-1.2) 12/04/23 02:49 GFR Calculation Not Reportable 12/04/23 02:49 Glucose 112 mg/dL (65-115) 12/04/23 02:49 Estimat Average Glucose 131 12/01/23 19:03 Hemoglobin A1c 6.2 % (4.0-6.0) H 12/01/23 19:03 Calculated Osmolality 285 mOsm/kg (285-295) 12/04/23 02:49 Calcium 8.7 mg/dL (8.5-10.5) 12/04/23 02:49 Phosphorus 3.7 mg/dL (2.5-4.5) 12/02/23 07:18 Magnesium 2.1 mg/dL (1.7-2.3) 12/02/23 07:18 Total Bilirubin 0.6 mg/dL (0.15-1.2) 12/04/23 02:49 AST 15 U/L (0-40) 12/04/23 02:49 ALT 14 U/L (0-41) 12/04/23 02:49 Alkaline Phosphatase 57 U/L (40-130) 12/04/23 02:49 C-Reactive Protein 8.9 mg/L (0.0-4.9) H 12/02/23 07:18 Total Protein 5.8 g/dL (6.6-8.7) L 12/04/23 02:49 Albumin 3.6 g/dL (3.5-5.2) 12/04/23 02:49 Globulin 2.2 g/dL (1.3-4.6) 12/04/23 02:49 Vitamin B12 474 pg/mL (423-6260) 12/01/23 19:03 Vitals Last Vital Signs Temp 97.5 F L 12/04/23 07:52 Pulse 57 L 12/04/23 07:52 Resp 20 H 12/04/23 07:52 BP 115/69 12/04/23 07:52 Pulse Ox 95 12/04/23 07:52 O2 Del Method Room Air 12/04/23 07:52 Discharge Plan Discharge Patient Disposition: Home Condition: Stable Prescriptions: New pantoprazole 40 mg Tablet,Delayed Release (Dr/Ec) 40 mg PO DAILY 30 Days Qty: 30 0RF Eliquis 5 mg tablet 5 mg PO BID 90 Days Qty: 180 1RF Rx Instructions: take 10mg twice daily for 7 days, then reduce dose to 5mg twice daily Continued omega-3 fatty acids 1,000 mg capsule 1,000 mg PO DAILY cholecalciferol (vitamin D3) 50 mcg (2,000 unit) capsule 50 mcg PO DAILY magnesium 250 mg tablet 250 mg PO DAILY mecobalamin (vitamin B12) 1,000 mcg lozenge 1,000 mcg PO DAILY Rx Instructions: allow to dissolve in mouth OR may chew lightly before swallowing rosuvastatin 40 mg tablet 40 mg PO DAILY lisinopril 20 mg tablet 20 mg PO DAILY levothyroxine 175 mcg tablet 175 mcg PO DAILY Jardiance 10 mg tablet 10 mg PO QAM tadalafil [Cialis] 5 mg tablet 5 mg PO DAILY metoprolol succinate 25 mg tablet extended release 24 hr 25 mg PO DAILY Qty: 90 0RF clopidogrel 75 mg tablet 75 mg PO DAILY Qty: 90 0RF ranolazine 1,000 mg tablet extended release 12 hr 1,000 mg PO BID Qty: 60 0RF Discontinued aspirin 81 mg tablet,delayed release (DR/EC) 81 mg PO DAILY Discharge Orders: Discharge Order (Routine); Ordered 12/04/23 Ordered By: Paz Mace Referrals: Jessica Godwin DO [Primary Care Provider] - 7-10 days (We have notified your physician's clinic of the need for a follow-up appointment to be scheduled. If you have not heard from them within the next 2 business days, please call them directly. ) Scott Zaragoza MD [Hospitalist] - 1 month (extensive DVT with PE. ) Discharge Diet: Usual diet Discharge Activity: Resume usual activity Patient Instructions: Pantoprazole (By mouth), Apixaban (By mouth), Deep Vein Thrombosis (DC), Opioid Safety Plan of Treatment: Take Eliquis 10mg twice a day for 7 days, then reduce dose to 5mg twice a day for next 3 months Discharge Attestations Time Spent in Discharge Care*: greater than 30 min Quality Metrics Clinical Quality Measures [ Venous Thromboembolism { Contraindication to Overlap Therapy: None; Overlap threrpy ordered; VTE Discharge Education: Education about anticoagulant therapy/Care Notes given; Deep Vein Thrombosis/Pulmonary Embolism Present on Admission: Yes;}] Coding Level of Care Code Acute Code for Chg Fwd Diagnoses Prediabetes R73.03 Acquired hypothyroidism E03.9 Hypothyroidism type: acquired DVT (deep venous thrombosis) I82.402 Affected thrombotic vein of extremity: unspecified vein of extremity Chronicity: acute DVT location: lower extremity Laterality: left CESAR (acute kidney injury) N17.9 Hyperkalemia E87.5 Pulmonary embolism I26.94 Pulmonary embolism type: multiple subsegmental (without acute cor pulmonale)
[2023-12-07 13:29] LABS: Beta 2 Glycoprotein IGA <2.0 U/mL; Beta 2 Glycoprotein IGG <2.0 U/mL; Beta 2 Glycoprotein IGM 8.2 U/mL; CARDIOLIPIN AB (IGA) <2.0 APL-U/mL; CARDIOLIPIN AB (IGG) <2.0 GPL-U/mL; CARDIOLIPIN AB (IGM) 3.8 MPL-U/mL
== END 2023-12-04 12:55 | disposition home or self-care (01) | DRG 299 ==
LOC: ER 22:27 → MEDSURG 12-02 00:05
PROVIDERS: Emergency Medicine; Admitting Provider Internal Medicine; Emergency Provider Internal Medicine; PCP Family Medicine; Visit Provider Student in an Organized Health Care Education/Training Program
DX: I82.422 Acute embolism and thrombosis of left iliac vein (principal); I26.99 Other pulmonary embolism without acute cor pulmonale; N17.9 Acute kidney failure, unspecified; I82.4Z2 Acute embolism and thrombosis of unspecified deep veins of left distal lower extremity; E03.9 Hypothyroidism, unspecified; E87.5 Hyperkalemia; I25.10 Atherosclerotic heart disease of native coronary artery without angina pectoris; Z95.5 Presence of coronary angioplasty implant and graft; Z79.82 Long term (current) use of aspirin; Z79.02 Long term (current) use of antithrombotics/antiplatelets; I10 Essential (primary) hypertension; R00.1 Bradycardia, unspecified; R73.03 Prediabetes
CPT/HCPCS: 36415; 71275; 80048; 80053; 82607; 83036; 83516; 83735; 84100; 85025; 85378; 85730; 86140; 86146; 86147; 93306; 93971; 96365; 96375; 99285; J1644; J1815; Q9967

== ENCOUNTER 2023-12-11 04:46 | Emergency (ER) | payer MEDICARE, SELFPAY ==
[2023-12-11 04:58] VITALS: BP 150/78; PULSE 56; RESP 18; TEMP 36.6; O2SAT 95; BMI 27.7
--- NOTE | 2023-12-11 05:15 | ECG_ITS ---
[facility] Test Date: 2023-12-11 Pat Name: Lucas Hemphill Department: Room: Gender: Male It Technical Support Specialist: : [id number] Requested By: Jian Ratliff Order Number: [id number] Aldair MD: Davian Alegria M.D. Measurements Intervals [place] Rate: 51 P: 40 DC: 174 QRS: 14 QRSD: 101 T: 20 QT: 448 QTc: 413 Interpretive Statements SINUS BRADYCARDIA No previous ECG available for comparison Electronically Signed On 12-11-2023 18:38:05 CDT by Davian Alegria M.D. [id number] f
--- NOTE | 2023-12-11 05:15 | XRR_ITS ---
PROCEDURE INFORMATION: Exam: XR Chest Exam date and time: 12/11/2023 5:33 AM Age: 73 years old Clinical indication: Pain; Shortness of breath; Chest pressure; Prior surgery; Surgery date: 6+ months; Surgery type: Coronary stents; Patient HX: Chest discomfort with SOB. Currently on anticoagulants for pe. TECHNIQUE: Imaging protocol: Radiologic exam of the chest. Views: 1 view. COMPARISON: CT angio chest PE protcl [id number] 12/02/2023 12:39 AM FINDINGS: Lungs: Unremarkable. No consolidation. Pleural spaces: Unremarkable. No pleural effusion. No pneumothorax. Heart/Mediastinum: Cardiomegaly. Bones/joints: Unremarkable. XR/XR chest 1V portable [id number] IMPRESSION: No acute findings. Cardiomegaly noted.
--- NOTE | 2023-12-11 05:17 | W.ED.ANXIETY ---
Documented by User: Jian Marcano DO 12/11/23 18:35 HPI - Anxiety General: Chief Complaint: Anxiety Stated Complaint: Warm\N\Previous Blood Clots Time Seen by Provider: 12/11/23 05:00 History of Present Illness: 73-year-old male with a history of coronary disease, DVT, and pulmonary embolus. DVT and PE or diagnosed last week, and he spent 3 nights in the hospital here. He was on a heparin drip, transition to Eliquis. He has been taking his medication faithfully. He awoke this morning with a feeling of nausea, some shortness of breath, and flushness with warmth. He had this feeling a couple of weeks ago, and attributes that feeling to his pulmonary embolus diagnosed last week. He denies overt fever. He denies overt chest pain. He notes that the swelling in his leg has improved. Associated symptoms: Reports chills and nausea; Deny chest pain, fever(s), headache(s) or palpitations Review of Systems Const: Reports: chills; Denies: fever(s) Eyes: Denies: change in vision ENMT: Denies: throat pain Card: Denies: chest pain, palpitations or irregular heart rhythm Resp: Reports: dyspnea GI: Reports: nausea; Denies: abdominal pain or constipation Skin/Breast: Denies: rash Neuro: Denies: headache(s) Psych: Reports: anxiety PFSH ED PFSH: Medical History Erectile dysfunction Hypothyroidism Prediabetes Essential (primary) hypertension CAD (coronary artery disease) Surgical History History of heart artery stent x 2 - in 2020 History of angioplasty History of tonsillectomy Family History Father Brain cancer Glaucoma Mother No problems noted. Social History Smoking and tobacco/nicotine status: never used tobacco/nicotine Alcohol intake: current Alcohol intake frequency: few times a month Substance/Drug Use: never Household members: spouse Housing: House Highest education level completed: Bachelor's Degree Current occupational status: retired Physical Exam Const: COMMON NORMALS: no acute distress GENERAL APPEARANCE: anxious HENMT: COMMON NORMALS: normocephalic, atraumatic and Normal external nose present HEAD & SCALP: normocephalic and atraumatic FACE & SINUS: normal facial exam and face symmetric NOSE: Normal external nose present Eye: COMMON NORMALS: Equal, round and reactive pupils present and EOMs intact bilaterally PUPIL: Yes Equal, round and reactive pupils present Neck/C-Spine: GENERAL: Yes trachea midline Chest: CHEST: Yes Symmetrical chest wall rise Resp: COMMON NORMALS: normal respiratory effort, No retractions, No use of accessory muscles and clear to auscultation bilaterally AUSCULTATION: clear to auscultation bilaterally Cardio: COMMON NORMALS: regular rhythm RATE: bradycardic RHYTHM: regular rhythm GI: COMMON NORMALS: Normal to inspection, nondistended, normoactive bowel sounds present Extremity: COMMON NORMALS: no pedal edema Neuro: DONNA COMA SCALE: document GCS findings [place] coma scale eye opening: Spontaneous [place] coma scale verbal response: Orientated Donna coma scale motor response: Obey commands [place] coma scale total score: 15 SENSORY EXAM: Yes extremities (intact) Psych: COMMON NORMALS: speech normal SPEECH: Yes normal speech Skin: COMMON NORMALS: no rashes or lesions noted GENERAL SKIN EXAM: no rashes or lesions noted Course Vital Signs: Vital signs: Vital Signs Temperature 97.8 F 12/11/23 06:55 Pulse Rate 54 L 12/11/23 06:55 Respiratory Rate 16 12/11/23 06:55 Blood Pressure 108/68 12/11/23 06:55 Pulse Oximetry 97 12/11/23 06:55 MDM - Anxiety Medical Decision Making This patient is a pulse 56. His respirations are normal. Saturation is 97% on room air. The patient's EKG shows a sinus bradycardia of 51 with normal axis, normal intervals, and no ST wave changes. CBC is nonacute. BNP is 72. Troponin is 11. Chest x-ray is nonacute. With recent history of PE, we will CTA the patient look for progression of clot, although this is doubtful. His oxygen saturation is a bit low. Will be checked out at shift change. Lab Data 12/11/23 05:05 12/11/23 05:05 Radiology Impressions Chest X-Ray 12/11/23 05:15 IMPRESSION: No acute findings. Cardiomegaly noted. Chest CTA 12/11/23 06:09 IMPRESSION: Acute pulmonary embolism in right upper lobe lobar pulmonary artery branches. Acute on chronic pulmonary embolism in right lower lobe proximal lobar pulmonary artery and branches. Chronic pulmonary embolism changes in left lower lobe pulmonary artery branches. THIS REPORT CONTAINS FINDINGS THAT MAY BE CRITICAL TO PATIENT CARE. The findings were verbally communicated via telephone conference with Dr. Parrish at 6:40 AM CDT on 12/11/2023. The findings were acknowledged and understood. Laboratory Results WBC 5.75 10^3/uL (3.29-11.43) 12/11/23 05:05 RBC 6.03 10^6/uL (3.85-5.65) H 12/11/23 05:05 Hgb 16.60 g/dL (11.27-16.99) 12/11/23 05:05 Hct 50.5 % (37-53) 12/11/23 05:05 MCV 83.7 fl (82-101) 12/11/23 05:05 MCH 27.5 pg (27-33) 12/11/23 05:05 MCHC 32.9 g/dL (30-55) 12/11/23 05:05 RDW 14.6 % (12.1-15.1) 12/11/23 05:05 Plt Count 146 10^3/cmm (157-399) L 12/11/23 05:05 MPV 8.4 fL (7.4-10.4) 12/11/23 05:05 Neut % (Auto) 54.5 % 12/11/23 05:05 Lymph % (Auto) 29.7 % 12/11/23 05:05 [place] % (Auto) 10.1 % 12/11/23 05:05 Eos % (Auto) 4.7 % 12/11/23 05:05 Baso % (Auto) 0.7 % 12/11/23 05:05 Neut # (Auto) 3.13 10^3/uL (1.8-7.7) 12/11/23 05:05 Lymph # (Auto) 1.7 10^3/uL (0.8-4.8) 12/11/23 05:05 [place] # (Auto) 0.6 10^3/uL (0.2-0.9) 12/11/23 05:05 Eos # (Auto) 0.3 10^3/uL (0.0-0.8) 12/11/23 05:05 Baso # (Auto) 0.0 10^3/uL (0.0-0.1) 12/11/23 05:05 Nucleated RBC % (auto) 0 % 12/11/23 05:05 Nucleated RBCs # 0.0 /100WBC 12/11/23 05:05 PT 15.80 SECONDS (12.1-14.9) H 12/11/23 05:05 INR 1.22 (0.8-1.2) H 12/11/23 05:05 APTT 32.9 SECONDS (23.9-36.7) 12/11/23 05:05 Sodium 133 mmol/L (136-145) L 12/11/23 05:05 Potassium 4.4 mmol/L (3.5-5.1) 12/11/23 05:05 Chloride 98 mmol/L (98-107) 12/11/23 05:05 Carbon Dioxide 24 mmol/L (22-29) 12/11/23 05:05 Anion Gap 15.4 (5-19) 12/11/23 05:05 BUN 19 mg/dL (8-23) 12/11/23 05:05 Creatinine 1.1 mg/dL (0.7-1.2) 12/11/23 05:05 GFR Calculation Not Reportable 12/11/23 05:05 Glucose 121 mg/dL (65-115) H 12/11/23 05:05 Calculated Osmolality 280 mOsm/kg (285-295) L 12/11/23 05:05 Calcium 9.0 mg/dL (8.5-10.5) 12/11/23 05:05 Total Bilirubin 0.7 mg/dL (0.15-1.2) 12/11/23 05:05 AST 14 U/L (0-40) 12/11/23 05:05 ALT 22 U/L (0-41) 12/11/23 05:05 Alkaline Phosphatase 66 U/L (40-130) 12/11/23 05:05 Troponin T Baseline 11 ng/L (0-15) 12/11/23 05:05 NT-Pro-B Natriuret Pep 72 pg/mL (0-125) 12/11/23 05:05 Total Protein 6.5 g/dL (6.6-8.7) L 12/11/23 05:05 Albumin 4.2 g/dL (3.5-5.2) 12/11/23 05:05 Globulin 2.3 g/dL (1.3-4.6) 12/11/23 05:05 Lipase 32 U/L (13-60) 12/11/23 05:05 Discharge Plan Discharge Patient Disposition: Home Clinical Impression: Pulmonary embolism Qualifiers: Pulmonary embolism type: multiple subsegmental (without acute cor pulmonale) Qualified Code(s): I26.94 - Multiple subsegmental pulmonary emboli without acute cor pulmonale Condition: Stable Prescriptions: No Action omega-3 fatty acids 1,000 mg capsule 1,000 mg PO DAILY cholecalciferol (vitamin D3) 50 mcg (2,000 unit) capsule 50 mcg PO DAILY magnesium 250 mg tablet 250 mg PO DAILY mecobalamin (vitamin B12) 1,000 mcg lozenge 1,000 mcg PO DAILY Rx Instructions: allow to dissolve in mouth OR may chew lightly before swallowing rosuvastatin 40 mg tablet 40 mg PO DAILY lisinopril 20 mg tablet 20 mg PO DAILY levothyroxine 175 mcg tablet 175 mcg PO DAILY Jardiance 10 mg tablet 10 mg PO QAM tadalafil [Cialis] 5 mg tablet 5 mg PO DAILY metoprolol succinate 25 mg tablet extended release 24 hr 25 mg PO DAILY Qty: 90 0RF clopidogrel 75 mg tablet 75 mg PO DAILY Qty: 90 0RF ranolazine 1,000 mg tablet extended release 12 hr 1,000 mg PO BID Qty: 60 0RF pantoprazole 40 mg Tablet,Delayed Release (Dr/Ec) 40 mg PO DAILY 30 Days Qty: 30 0RF Eliquis 5 mg tablet 5 mg PO BID 90 Days Qty: 180 1RF Rx Instructions: take 10mg twice daily for 7 days, then reduce dose to 5mg twice daily Discharge Orders: Discharge ED (Routine); Ordered 12/11/23 Ordered By: Roxana Parrish Referrals: Jessica Godwin DO [Primary Care Provider] - 1-3 days Discharge Diet: Advance as tolerated Discharge Activity: Resume usual activity Patient Instructions: Pulmonary Embolism (ED) Coding Level of Care Code ED Career Technical Education Teacher for Chg Fwd Documented by User: Roxana Parrish MD 12/11/23 06:53 HPI - Anxiety General: Chief Complaint: Anxiety Stated Complaint: Warm\N\Previous Blood Clots Time Seen by Provider: 12/11/23 05:00 PFSH ED PFSH: Medical History Erectile dysfunction Hypothyroidism Prediabetes Essential (primary) hypertension CAD (coronary artery disease) Surgical History History of heart artery stent x 2 - in 2020 History of angioplasty History of tonsillectomy Family History Father Brain cancer Glaucoma Mother No problems noted. Social History Smoking and tobacco/nicotine status: never used tobacco/nicotine Alcohol intake: current Alcohol intake frequency: few times a month Substance/Drug Use: never Household members: spouse Housing: House Highest education level completed: Bachelor's Degree Current occupational status: retired Course Vital Signs: Vital signs: Vital Signs Temperature 97.8 F 12/11/23 06:55 Pulse Rate 54 L 12/11/23 06:55 Respiratory Rate 16 12/11/23 06:55 Blood Pressure 108/68 12/11/23 06:55 Pulse Oximetry 97 12/11/23 06:55 MDM - Anxiety Medical Decision Making This patient is a pulse 56. His respirations are normal. Saturation is 97% on room air. The patient's EKG shows a sinus bradycardia of 51 with normal axis, normal intervals, and no ST wave changes. CBC is nonacute. BNP is 72. Troponin is 11. Chest x-ray is nonacute. With recent history of PE, we will CTA the patient look for progression of clot, although this is doubtful. His oxygen saturation is a bit low. Will be checked out at shift change. CT does show a new clot burden he feels much improved here he is not hypoxic his BNP troponin are normal no signs of severe heart strain I feel he is stable for discharge he is to continue his blood thinners follow-up with PCP and return if worsening he understands agrees to plan Lab Data 12/11/23 05:05 12/11/23 05:05 Radiology Impressions Chest X-Ray 12/11/23 05:15 IMPRESSION: No acute findings. Cardiomegaly noted. Chest CTA 12/11/23 06:09 IMPRESSION: Acute pulmonary embolism in right upper lobe lobar pulmonary artery branches. Acute on chronic pulmonary embolism in right lower lobe proximal lobar pulmonary artery and branches. Chronic pulmonary embolism changes in left lower lobe pulmonary artery branches. THIS REPORT CONTAINS FINDINGS THAT MAY BE CRITICAL TO PATIENT CARE. The findings were verbally communicated via telephone conference with Dr. Parrish at 6:40 AM CDT on 12/11/2023. The findings were acknowledged and understood. Laboratory Results WBC 5.75 10^3/uL (3.29-11.43) 12/11/23 05:05 RBC 6.03 10^6/uL (3.85-5.65) H 12/11/23 05:05 Hgb 16.60 g/dL (11.27-16.99) 12/11/23 05:05 Hct 50.5 % (37-53) 12/11/23 05:05 MCV 83.7 fl (82-101) 12/11/23 05:05 MCH 27.5 pg (27-33) 12/11/23 05:05 MCHC 32.9 g/dL (30-55) 12/11/23 05:05 RDW 14.6 % (12.1-15.1) 12/11/23 05:05 Plt Count 146 10^3/cmm (157-399) L 12/11/23 05:05 MPV 8.4 fL (7.4-10.4) 12/11/23 05:05 Neut % (Auto) 54.5 % 12/11/23 05:05 Lymph % (Auto) 29.7 % 12/11/23 05:05 [place] % (Auto) 10.1 % 12/11/23 05:05 Eos % (Auto) 4.7 % 12/11/23 05:05 Baso % (Auto) 0.7 % 12/11/23 05:05 Neut # (Auto) 3.13 10^3/uL (1.8-7.7) 12/11/23 05:05 Lymph # (Auto) 1.7 10^3/uL (0.8-4.8) 12/11/23 05:05 [place] # (Auto) 0.6 10^3/uL (0.2-0.9) 12/11/23 05:05 Eos # (Auto) 0.3 10^3/uL (0.0-0.8) 12/11/23 05:05 Baso # (Auto) 0.0 10^3/uL (0.0-0.1) 12/11/23 05:05 Nucleated RBC % (auto) 0 % 12/11/23 05:05 Nucleated RBCs # 0.0 /100WBC 12/11/23 05:05 PT 15.80 SECONDS (12.1-14.9) H 12/11/23 05:05 INR 1.22 (0.8-1.2) H 12/11/23 05:05 APTT 32.9 SECONDS (23.9-36.7) 12/11/23 05:05 Sodium 133 mmol/L (136-145) L 12/11/23 05:05 Potassium 4.4 mmol/L (3.5-5.1) 12/11/23 05:05 Chloride 98 mmol/L (98-107) 12/11/23 05:05 Carbon Dioxide 24 mmol/L (22-29) 12/11/23 05:05 Anion Gap 15.4 (5-19) 12/11/23 05:05 BUN 19 mg/dL (8-23) 12/11/23 05:05 Creatinine 1.1 mg/dL (0.7-1.2) 12/11/23 05:05 GFR Calculation Not Reportable 12/11/23 05:05 Glucose 121 mg/dL (65-115) H 12/11/23 05:05 Calculated Osmolality 280 mOsm/kg (285-295) L 12/11/23 05:05 Calcium 9.0 mg/dL (8.5-10.5) 12/11/23 05:05 Total Bilirubin 0.7 mg/dL (0.15-1.2) 12/11/23 05:05 AST 14 U/L (0-40) 12/11/23 05:05 ALT 22 U/L (0-41) 12/11/23 05:05 Alkaline Phosphatase 66 U/L (40-130) 12/11/23 05:05 Troponin T Baseline 11 ng/L (0-15) 12/11/23 05:05 NT-Pro-B Natriuret Pep 72 pg/mL (0-125) 12/11/23 05:05 Total Protein 6.5 g/dL (6.6-8.7) L 12/11/23 05:05 Albumin 4.2 g/dL (3.5-5.2) 12/11/23 05:05 Globulin 2.3 g/dL (1.3-4.6) 12/11/23 05:05 Lipase 32 U/L (13-60) 12/11/23 05:05 All radiology interpretation(s) finalized by discharge Discharge Plan Discharge Patient Disposition: Home Clinical Impression: Pulmonary embolism Qualifiers: Pulmonary embolism type: multiple subsegmental (without acute cor pulmonale) Qualified Code(s): I26.94 - Multiple subsegmental pulmonary emboli without acute cor pulmonale Condition: Stable Prescriptions: No Action omega-3 fatty acids 1,000 mg capsule 1,000 mg PO DAILY cholecalciferol (vitamin D3) 50 mcg (2,000 unit) capsule 50 mcg PO DAILY magnesium 250 mg tablet 250 mg PO DAILY mecobalamin (vitamin B12) 1,000 mcg lozenge 1,000 mcg PO DAILY Rx Instructions: allow to dissolve in mouth OR may chew lightly before swallowing rosuvastatin 40 mg tablet 40 mg PO DAILY lisinopril 20 mg tablet 20 mg PO DAILY levothyroxine 175 mcg tablet 175 mcg PO DAILY Jardiance 10 mg tablet 10 mg PO QAM tadalafil [Cialis] 5 mg tablet 5 mg PO DAILY metoprolol succinate 25 mg tablet extended release 24 hr 25 mg PO DAILY Qty: 90 0RF clopidogrel 75 mg tablet 75 mg PO DAILY Qty: 90 0RF ranolazine 1,000 mg tablet extended release 12 hr 1,000 mg PO BID Qty: 60 0RF pantoprazole 40 mg Tablet,Delayed Release (Dr/Ec) 40 mg PO DAILY 30 Days Qty: 30 0RF Eliquis 5 mg tablet 5 mg PO BID 90 Days Qty: 180 1RF Rx Instructions: take 10mg twice daily for 7 days, then reduce dose to 5mg twice daily Discharge Orders: Discharge ED (Routine); Ordered 12/11/23 Ordered By: Roxana Parrish Referrals: Jessica Godwin DO [Primary Care Provider] - 1-3 days Discharge Diet: Advance as tolerated Discharge Activity: Resume usual activity Patient Instructions: Pulmonary Embolism (ED) Coding Level of Care Code ED Career Technical Education Teacher for Barbie Diaz
[2023-12-11 05:24] LABS: Basophils % 0.7 %; Eosinophils # 0.3 10^3/uL (0.0-0.8); Eosinophils % 4.7 %; Hematocrit 50.5 % (37-53); Lymphocytes # 1.7 10^3/uL (0.8-4.8); Lymphocytes % 29.7 %; Mean Corpuscular HGB Conc 32.9 g/dL (30-55); Mean Corpuscular Hemoglobin 27.5 pg (27-33); Mean Corpuscular Volume 83.7 fl (82-101); Mean Platelet Volume 8.4 fL (7.4-10.4); Monocytes # 0.6 10^3/uL (0.2-0.9); Monocytes % 10.1 %; Neutrophils # 3.13 10^3/uL (1.8-7.7); Neutrophils % 54.5 %; Nucleated Red Blood Cells % 0 %; Platelet Count 146 10^3/cmm (157-399); Red Blood Count 6.03 10^6/uL (3.85-5.65); Red Cell Distribution Width 14.6 % (12.1-15.1); White Blood Count 5.75 10^3/uL (3.29-11.43)
[2023-12-11 05:28] LABS: INR 1.22 (0.8-1.2)
[2023-12-11 05:29] LABS: Partial Thromboplastin Time 32.9 SECONDS (23.9-36.7)
[2023-12-11 05:36] LABS: Troponin(5th) Baseline 11 ng/L (0-15)
[2023-12-11 05:43] LABS: Alanine Aminotransferase 22 U/L (0-41); Albumin Level 4.2 g/dL (3.5-5.2); Alkaline Phosphatase 66 U/L (40-130); Anion Gap 15.4 (5-19); Aspartate Amino Transferase 14 U/L (0-40); Blood Urea Nitrogen 19 mg/dL (8-23); Carbon Dioxide 24 mmol/L (22-29); Chloride 98 mmol/L (98-107); Creatinine Clr Calc Pharmacy 61.6245; Globulin 2.3 g/dL (1.3-4.6); Glucose 121 mg/dL (65-115); Lipase 32 U/L (13-60); NT Pro B Type Natriuretic Pept 72 pg/mL (0-125); Osmolality Calculated 280 mOsm/kg (285-295); Potassium 4.4 mmol/L (3.5-5.1); Sodium 133 mmol/L (136-145); Total Bilirubin 0.7 mg/dL (0.15-1.2); Total Protein 6.5 g/dL (6.6-8.7)
--- NOTE | 2023-12-11 06:09 | CTR_ITS ---
PROCEDURE INFORMATION: Exam: CTA Chest With Contrast Exam date and time: 12/11/2023 6:17 AM Age: 73 years old Clinical indication: Pain; Shortness of breath; Chest pressure; Prior surgery; Surgery date: 6+ months; Surgery type: Coronary stents; Patient HX: Chest discomfort with SOB. Currently on anticoagulants for pe; Additional info: SOB HX of pe TECHNIQUE: Imaging protocol: Computed tomographic angiography of the chest with contrast. Exam focused on the arteries. 3D rendering (Not supervised by radiologist): MIP and/or 3D reconstructed images were created by the technologist. Radiation optimization: All CT scans at this facility use at least one of these dose optimization techniques: automated exposure control; mA and/or kV adjustment per patient size (includes targeted exams where dose is matched to clinical indication); or iterative reconstruction. Contrast material: OMNI 350; Contrast volume: 70 ml; Contrast route: INTRAVENOUS (IV); COMPARISON: CT angio chest PE protcl [id number] 12/02/2023 12:39 AM RADIATION DOSE METRICS: Total DLP (mGy-cm): 341.54 FINDINGS: Pulmonary arteries: Acute pulmonary embolism seen in right upper lobe lobar pulmonary artery branch. This finding is new compared to previous study. There is thrombus in right lower lobe proximal pulmonary artery extending into lobar branches. Part of this show changes of recanalization. Acute on chronic pulmonary embolism suspected. Minimal chronic thrombus changes in left lower lobe lobar and segmental branches. There is no definite acute embolism in left upper or lower pulmonary artery branches. Aorta: Coronary artery calcifications noted. Scattered calcifications in aortic arch. Minimal fusiform dilatation ascending thoracic aorta measuring 3.8 x 3.8 cm. No signs of acute dissection. Evaluation is minimally limited due to suboptimal contrast. Lungs: No focal infiltrate. No signs of pulmonary infarction. Mild atelectatic changes in lower lobes and right upper lobe adjacent to interlobar fissure medially. No discrete mass. Pleural spaces: Unremarkable. No pneumothorax. No pleural effusion. Heart: RV/LV ratio is 1.2. Cardiomegaly noted. No significant pericardial effusion. Lymph nodes: Unremarkable. No enlarged lymph nodes. Bones/joints: Minimal spondylotic changes of the spine. No acute fracture. Soft tissues: Suggestion of splenomegaly, not completely imaged. Small hiatal hernia. CT/CT angio chest PE protcl [id number] IMPRESSION: Acute pulmonary embolism in right upper lobe lobar pulmonary artery branches. Acute on chronic pulmonary embolism in right lower lobe proximal lobar pulmonary artery and branches. Chronic pulmonary embolism changes in left lower lobe pulmonary artery branches. THIS REPORT CONTAINS FINDINGS THAT MAY BE CRITICAL TO PATIENT CARE. The findings were verbally communicated via telephone conference with Dr. Parrish at 6:40 AM CDT on 12/11/2023. The findings were acknowledged and understood.
[2023-12-11] MEDS: iohexol 350 mg/mL 500 mL Btl (per mL) IV (06:17)
[2023-12-11 06:39] VITALS: BP 108/68; PULSE 54; RESP 16; O2SAT 97
[2023-12-11 06:55] VITALS: BP 108/68; PULSE 54; RESP 16; TEMP 36.6; O2SAT 97
== END 2023-12-11 06:55 | disposition home or self-care (01) ==
PROVIDERS: Emergency Medicine; Emergency Provider Emergency Medicine; PCP Family Medicine
DX: I26.94 Multiple subsegmental thrombotic pulmonary emboli without acute cor pulmonale (principal); Z79.02 Long term (current) use of antithrombotics/antiplatelets; Z79.01 Long term (current) use of anticoagulants; I10 Essential (primary) hypertension; I25.10 Atherosclerotic heart disease of native coronary artery without angina pectoris
CPT/HCPCS: 71045; 71275; 80053; 83690; 83880; 84484; 85025; 85610; 85730; 93005; 99285; Q9967

== ENCOUNTER → 2024-02-09 09:39 | Outpatient (BNVA) | payer MEDICARE, SELFPAY | PROVIDERS: PCP Family Medicine; Visit Provider Family Medicine | DX: I25.10 Atherosclerotic heart disease of native coronary artery without angina pectoris (principal); E03.9 Hypothyroidism, unspecified; R79.89 Other specified abnormal findings of blood chemistry; R73.03 Prediabetes; Z79.899 Other long term (current) drug therapy | CPT/HCPCS: 80053; 80061; 83036; 84443 ==

== ENCOUNTER → 2024-02-13 10:23 | Outpatient (BNVA) | payer MEDICARE, SELFPAY | PROVIDERS: PCP Family Medicine; Visit Provider Family Medicine | DX: R79.89 Other specified abnormal findings of blood chemistry (principal) | CPT/HCPCS: 84403 ==

== ENCOUNTER 2024-02-14 13:19 | Oncology outpatient (recurring) (ONCR) | payer MEDICARE, SELFPAY ==
[2024-02-14 15:08] LABS: Basophils % 0.6 %; Eosinophils # 0.2 10^3/uL (0.0-0.8); Hematocrit 52.4 % (37-53); Lymphocytes # 1.8 10^3/uL (0.8-4.8); Lymphocytes % 27.4 %; Mean Corpuscular Hemoglobin 27.2 pg (27-33); Mean Corpuscular Volume 82.5 fl (82-101); Mean Platelet Volume 8.2 fL (7.4-10.4); Monocytes # 0.6 10^3/uL (0.2-0.9); Monocytes % 8.9 %; Neutrophils # 3.81 10^3/uL (1.8-7.7); Neutrophils % 59.8 %; Nucleated Red Blood Cells % 0 %; Platelet Count 147 10^3/cmm (157-399); Red Blood Count 6.35 10^6/uL (3.85-5.65); Red Cell Distribution Width 16.3 % (12.1-15.1); White Blood Count 6.38 10^3/uL (3.29-11.43)
[2024-02-14 15:10] LABS: LAB Peripheral Smear Sent for Review
[2024-02-14 15:30] LABS: Alanine Aminotransferase 17 U/L (0-41); Alkaline Phosphatase 58 U/L (40-130); Blood Urea Nitrogen 22 mg/dL (8-23); Calcium 9.5 mg/dL (8.5-10.5); Carbon Dioxide 23 mmol/L (22-29); Chloride 100 mmol/L (98-107); Creatinine Clr Calc Pharmacy 62.0919; Globulin 2.6 g/dL (1.3-4.6); Glucose 116 mg/dL (65-115); Osmolality Calculated 284 mOsm/kg (285-295); Sodium 135 mmol/L (136-145); Total Bilirubin 0.5 mg/dL (0.15-1.2); Total Protein 6.6 g/dL (6.6-8.7)
[2024-02-14 15:33] LABS: Anion Gap 16.5 (5-19); Aspartate Amino Transferase 18 U/L (0-40); Lactate Dehydrogenase 205 U/L (135-225); Potassium 4.5 mmol/L (3.5-5.1)
[2024-02-14 15:56] LABS: HIV 1 & 2 Antibody Non-Reactive (Non-Reactiv); HIV 1 & 2 Antigen Non-Reactive (Non-Reactiv)
[2024-02-14 16:13] LABS: Hepatitis A Antibody IgM Non-Reactive (Nonreactive); Hepatitis B Core AB, Total Non-Reactive (Nonreactive); Hepatitis B Surface AB < 3.5 (11.5-1000); Hepatitis B Surface Antigen Non-Reactive (Nonreactive); Hepatitis C Virus Antibody Non-Reactive (Nonreactive); Vitamin B12 427 pg/mL (232-1245)
[2024-02-15 12:52] LABS: Leukemia Profile (BBPL) See Report
[2024-02-15 15:50] LABS: Anti-Nuclear Antibody Screen NEGATIVE (NEGATIVE)
[2024-02-17 11:39] LABS: Erythropoietin 44.1 mIU/mL (2.6-18.5)
[2024-02-17 15:04] LABS: Zinc Level, Serum or Plasma 68 mcg/dL (60-130)
[2024-02-17 17:00] LABS: Copper Level 88 mcg/dL (70-175)
[2024-02-18 10:21] LABS: Methylmalonic Acid 245 nmol/L (87-318)
[2024-02-20 17:54] LABS: PROTHROMBIN (FACTOR II) 20210G NEGATIVE
[2024-02-21 18:39] LABS: Factor 5 Leiden Mutation POSITIVE
== END 2024-03-11 23:59 | disposition home or self-care (01) ==
PROVIDERS: PCP Family Medicine; Visit Provider Internal Medicine
DX: I26.94 Multiple subsegmental thrombotic pulmonary emboli without acute cor pulmonale (principal); I82.402 Acute embolism and thrombosis of unspecified deep veins of left lower extremity; I10 Essential (primary) hypertension
CPT/HCPCS: 36415; 80053; 80503; 81241; 82525; 82607; 82668; 82746; 83615; 83921; 84439; 84630; 85025; 85210; 86038; 86705; 86706; 86709; 86803; 87340; 87806; 88184; 88185; 99203

== ENCOUNTER → 2024-03-06 10:04 | Outpatient (BNVA) | payer MEDICARE, SELFPAY | PROVIDERS: PCP Family Medicine; Visit Provider Family Medicine | DX: N52.8 Other male erectile dysfunction (principal); R79.89 Other specified abnormal findings of blood chemistry | CPT/HCPCS: 84403 ==

== ENCOUNTER → 2024-05-08 15:27 | Outpatient (BNVA) | payer MEDICARE, SELFPAY | PROVIDERS: PCP Family Medicine; Referring Provider Family Medicine; Visit Provider Internal Medicine Cardiovascular Disease | DX: I51.7 Cardiomegaly (principal); R00.1 Bradycardia, unspecified; I21.9 Acute myocardial infarction, unspecified | CPT/HCPCS: 93005; 99204 ==

== ENCOUNTER 2024-05-16 12:09 | Oncology outpatient (recurring) (ONCR) | payer MEDICARE, SELFPAY ==
[2024-05-16 12:37] LABS: Basophils % 0.7 %; Eosinophils # 0.2 10^3/uL (0.0-0.8); Eosinophils % 3.9 %; Hematocrit 51.5 % (37-53); Lymphocytes # 2.1 10^3/uL (0.8-4.8); Lymphocytes % 36.2 %; Mean Corpuscular HGB Conc 33.4 g/dL (30-55); Mean Corpuscular Hemoglobin 27.3 pg (27-33); Mean Corpuscular Volume 81.9 fl (82-101); Mean Platelet Volume 8.6 fL (7.4-10.4); Monocytes # 0.6 10^3/uL (0.2-0.9); Monocytes % 10.6 %; Neutrophils # 2.74 10^3/uL (1.8-7.7); Neutrophils % 48.4 %; Nucleated Red Blood Cells % 0 %; Platelet Count 128 10^3/cmm (157-399); Red Blood Count 6.29 10^6/uL (3.85-5.65); Red Cell Distribution Width 17.2 % (12.1-15.1); White Blood Count 5.66 10^3/uL (3.29-11.43)
[2024-05-16 13:00] LABS: Alanine Aminotransferase 21 U/L (0-41); Albumin Level 4.4 g/dL (3.5-5.2); Alkaline Phosphatase 64 U/L (40-130); Anion Gap 14.6 (5-19); Aspartate Amino Transferase 20 U/L (0-40); Blood Urea Nitrogen 20 mg/dL (8-23); Calcium 9.4 mg/dL (8.5-10.5); Carbon Dioxide 27 mmol/L (22-29); Chloride 96 mmol/L (98-107); Globulin 2.5 g/dL (1.3-4.6); Glucose 123 mg/dL (65-115); Osmolality Calculated 280 mOsm/kg (285-295); Potassium 4.6 mmol/L (3.5-5.1); Sodium 133 mmol/L (136-145); Total Bilirubin 0.6 mg/dL (0.15-1.2); Total Protein 6.9 g/dL (6.6-8.7)
== END 2024-06-11 23:59 | disposition home or self-care (01) ==
PROVIDERS: PCP Family Medicine; Visit Provider Internal Medicine
DX: I26.94 Multiple subsegmental thrombotic pulmonary emboli without acute cor pulmonale (principal); I82.402 Acute embolism and thrombosis of unspecified deep veins of left lower extremity; D68.51 Activated protein C resistance
CPT/HCPCS: 36415; 80053; 85025; 99213

== ENCOUNTER → 2024-06-06 11:19 | Outpatient (BNVA) | payer MEDICARE, SELFPAY | PROVIDERS: PCP Family Medicine; Visit Provider Family Medicine | DX: R73.03 Prediabetes (principal); E03.9 Hypothyroidism, unspecified | CPT/HCPCS: 83036; 84439; 84443 ==

== ENCOUNTER 2024-08-16 13:11 | Oncology outpatient (recurring) (ONCR) | payer MEDICARE, SELFPAY ==
[2024-08-16 13:38] LABS: Basophils % 0.7 %; Eosinophils # 0.2 10^3/uL (0.0-0.8); Eosinophils % 2.9 %; Hematocrit 51.4 % (37-53); Lymphocytes # 1.8 10^3/uL (0.8-4.8); Lymphocytes % 30.9 %; Mean Corpuscular HGB Conc 32.5 g/dL (30-55); Mean Corpuscular Hemoglobin 27.5 pg (27-33); Mean Corpuscular Volume 84.5 fl (82-101); Mean Platelet Volume 8.1 fL (7.4-10.4); Monocytes # 0.6 10^3/uL (0.2-0.9); Monocytes % 9.6 %; Neutrophils # 3.27 10^3/uL (1.8-7.7); Neutrophils % 55.7 %; Nucleated Red Blood Cells % 0 %; Platelet Count 127 10^3/cmm (157-399); Red Blood Count 6.08 10^6/uL (3.85-5.65); Red Cell Distribution Width 14.4 % (12.1-15.1); White Blood Count 5.86 10^3/uL (3.29-11.43)
[2024-08-16 13:52] LABS: Alanine Aminotransferase 19 U/L (0-41); Albumin Level 4.2 g/dL (3.5-5.2); Alkaline Phosphatase 57 U/L (40-130); Anion Gap 14.5 (5-19); Aspartate Amino Transferase 19 U/L (0-40); Blood Urea Nitrogen 19 mg/dL (8-23); Calcium 9.8 mg/dL (8.5-10.5); Carbon Dioxide 25 mmol/L (22-29); Chloride 98 mmol/L (98-107); Creatinine Clr Calc Pharmacy 62.4257; Globulin 2.4 g/dL (1.3-4.6); Glucose 101 mg/dL (65-115); Osmolality Calculated 278 mOsm/kg (285-295); Potassium 4.5 mmol/L (3.5-5.1); Sodium 133 mmol/L (136-145); Total Bilirubin 0.6 mg/dL (0.15-1.2); Total Protein 6.6 g/dL (6.6-8.7)
== END 2024-09-11 23:59 | disposition home or self-care (01) ==
PROVIDERS: Nurse Practitioner Family; PCP Family Medicine; Visit Provider Internal Medicine Medical Oncology
DX: I26.94 Multiple subsegmental thrombotic pulmonary emboli without acute cor pulmonale (principal); I82.402 Acute embolism and thrombosis of unspecified deep veins of left lower extremity; D68.51 Activated protein C resistance
CPT/HCPCS: 36415; 80053; 85025; 99213

== ENCOUNTER → 2024-11-23 09:28 | Outpatient (BNVA) | payer MEDICARE, SELFPAY | PROVIDERS: PCP Family Medicine; Visit Provider Family Medicine | DX: E11.9 Type 2 diabetes mellitus without complications (principal); R79.89 Other specified abnormal findings of blood chemistry; R35.1 Nocturia; E03.9 Hypothyroidism, unspecified | CPT/HCPCS: 80053; 83036; 84153; 84403; 84439; 84443 ==

== ENCOUNTER 2024-11-29 15:05 | Oncology outpatient (recurring) (ONCR) | payer MEDICARE, SELFPAY ==
[2024-11-15 12:25] LABS: Basophils # 0.1 10^3/uL (0.0-0.1); Basophils % 0.8 %; Eosinophils # 0.2 10^3/uL (0.0-0.8); Eosinophils % 2.8 %; Hematocrit 53.5 % (37-53); Lymphocytes # 1.8 10^3/uL (0.8-4.8); Lymphocytes % 29.8 %; Mean Corpuscular HGB Conc 32.5 g/dL (30-55); Mean Corpuscular Hemoglobin 26.4 pg (27-33); Mean Corpuscular Volume 81.3 fl (82-101); Mean Platelet Volume 8.4 fL (7.4-10.4); Monocytes # 0.6 10^3/uL (0.2-0.9); Monocytes % 8.9 %; Neutrophils # 3.55 10^3/uL (1.8-7.7); Neutrophils % 57.4 %; Nucleated Red Blood Cells % 0 %; Platelet Count 175 10^3/cmm (157-399); Red Blood Count 6.58 10^6/uL (3.85-5.65); Red Cell Distribution Width 16.5 % (12.1-15.1); White Blood Count 6.18 10^3/uL (3.29-11.43)
[2024-11-15 12:44] LABS: Alanine Aminotransferase 18 U/L (0-41); Albumin Level 4.1 g/dL (3.5-5.2); Alkaline Phosphatase 68 U/L (40-130); Aspartate Amino Transferase 19 U/L (0-40); Blood Urea Nitrogen 19 mg/dL (8-23); Carbon Dioxide 25 mmol/L (22-29); Chloride 98 mmol/L (98-107); Globulin 2.4 g/dL (1.3-4.6); Glucose 115 mg/dL (65-115); Osmolality Calculated 279 mOsm/kg (285-295); Sodium 133 mmol/L (136-145); Total Bilirubin 0.7 mg/dL (0.15-1.2); Total Protein 6.5 g/dL (6.6-8.7)
[2024-11-15 12:46] LABS: Anion Gap 14.7 (5-19); Potassium 4.7 mmol/L (3.5-5.1)
[2024-11-15 14:44] LABS: D Dimer <= 0.27 ug/mLFEU (0-0.59)
== END 2024-12-10 23:59 | disposition home or self-care (01) ==
PROVIDERS: Internal Medicine; Nurse Practitioner Family; PCP Family Medicine; Visit Provider Internal Medicine Medical Oncology
DX: I26.94 Multiple subsegmental thrombotic pulmonary emboli without acute cor pulmonale (principal); D68.51 Activated protein C resistance; I82.402 Acute embolism and thrombosis of unspecified deep veins of left lower extremity; I25.10 Atherosclerotic heart disease of native coronary artery without angina pectoris; I10 Essential (primary) hypertension; E03.9 Hypothyroidism, unspecified; Z79.01 Long term (current) use of anticoagulants
CPT/HCPCS: 36415; 80053; 85025; 85378; 99213

== ENCOUNTER → 2024-12-11 09:36 | Outpatient (BNVA) | payer MEDICARE, SELFPAY | PROVIDERS: PCP Family Medicine; Visit Provider Family Medicine | DX: R79.89 Other specified abnormal findings of blood chemistry (principal) | CPT/HCPCS: 84403 ==

== ENCOUNTER → 2025-01-03 11:31 | Outpatient (BNVA) | payer MEDICARE, SELFPAY | PROVIDERS: PCP Family Medicine; Visit Provider Internal Medicine Cardiovascular Disease | DX: I25.10 Atherosclerotic heart disease of native coronary artery without angina pectoris (principal); I10 Essential (primary) hypertension; E03.9 Hypothyroidism, unspecified; E11.9 Type 2 diabetes mellitus without complications; Z79.84 Long term (current) use of oral hypoglycemic drugs; Z86.711 Personal history of pulmonary embolism; Z86.718 Personal history of other venous thrombosis and embolism; Z79.01 Long term (current) use of anticoagulants; Z95.5 Presence of coronary angioplasty implant and graft; Z87.891 Personal history of nicotine dependence | CPT/HCPCS: 99214 ==

== ENCOUNTER 2025-01-16 13:40 | Oncology outpatient (recurring) (ONCR) | payer MEDICARE, SELFPAY ==
[2025-01-16 14:14] LABS: Basophils % 0.6 %; Eosinophils # 0.3 10^3/uL (0.0-0.8); Eosinophils % 5.4 %; Lymphocytes # 1.7 10^3/uL (0.8-4.8); Lymphocytes % 30.4 %; Mean Corpuscular HGB Conc 31.9 g/dL (30-55); Mean Corpuscular Hemoglobin 26.5 pg (27-33); Mean Corpuscular Volume 83.1 fl (82-101); Mean Platelet Volume 8.4 fL (7.4-10.4); Monocytes # 0.5 10^3/uL (0.2-0.9); Monocytes % 9.2 %; Neutrophils # 2.94 10^3/uL (1.8-7.7); Neutrophils % 54.2 %; Nucleated Red Blood Cells % 0 %; Platelet Count 125 10^3/cmm (157-399); Red Blood Count 6.26 10^6/uL (3.85-5.65); Red Cell Distribution Width 18.1 % (12.1-15.1); White Blood Count 5.42 10^3/uL (3.29-11.43)
[2025-01-16 14:48] LABS: Alanine Aminotransferase 14 U/L (0-41); Alkaline Phosphatase 71 U/L (40-130); Aspartate Amino Transferase 16 U/L (0-40); Blood Urea Nitrogen 22 mg/dL (8-23); Calcium 9.1 mg/dL (8.5-10.5); Carbon Dioxide 27 mmol/L (22-29); Chloride 97 mmol/L (98-107); Creatinine Clr Calc Pharmacy 61.9462; Globulin 2.6 g/dL (1.3-4.6); Glucose 160 mg/dL (65-115); Osmolality Calculated 281 mOsm/kg (285-295); Sodium 132 mmol/L (136-145); Total Bilirubin 0.5 mg/dL (0.15-1.2); Total Protein 6.6 g/dL (6.6-8.7)
[2025-01-16 14:50] LABS: Anion Gap 12.6 (5-19); Potassium 4.6 mmol/L (3.5-5.1)
[2025-01-16 14:51] LABS: Lactate Dehydrogenase 154 U/L (135-225)
[2025-01-16 14:59] LABS: D Dimer 0.39 ug/mLFEU (0-0.59)
== END 2025-02-09 23:59 | disposition home or self-care (01) ==
PROVIDERS: Internal Medicine; PCP Family Medicine; Visit Provider Internal Medicine Medical Oncology
DX: I26.94 Multiple subsegmental thrombotic pulmonary emboli without acute cor pulmonale (principal); D68.51 Activated protein C resistance; I82.402 Acute embolism and thrombosis of unspecified deep veins of left lower extremity; R79.89 Other specified abnormal findings of blood chemistry; Z87.891 Personal history of nicotine dependence; I25.10 Atherosclerotic heart disease of native coronary artery without angina pectoris; I10 Essential (primary) hypertension; E03.9 Hypothyroidism, unspecified; Z79.899 Other long term (current) drug therapy
CPT/HCPCS: 36415; 80053; 83615; 84403; 85025; 85378; 99214

== ENCOUNTER → 2025-02-25 09:53 | Outpatient (BNVA) | payer MEDICARE, SELFPAY | PROVIDERS: PCP Family Medicine; Visit Provider Family Medicine | DX: E03.9 Hypothyroidism, unspecified (principal) | CPT/HCPCS: 84439; 84443 ==

== ENCOUNTER 2025-04-17 16:02 | Outpatient (CLI) | payer MEDICARE, SELFPAY ==
--- NOTE | 2025-04-17 16:00 | USR_ITS ---
PROCEDURE INFORMATION: Exam: US Duplex Left Lower Extremity Veins, Limited Exam date and time: 04/17/2025 4:30 PM Age: 74 years old Clinical indication: Swelling (edema) of limb; Lower extremity, left; Additional info: Dvt TECHNIQUE: Imaging protocol: Real-time duplex ultrasound of the left extremity with 2-D field scale, color Doppler flow and spectral waveform analysis including responses to compression and other maneuvers (when performed) with image documentation. Limited exam focused on the left lower extremity veins. COMPARISON: No relevant prior studies available. FINDINGS: Left deep veins: Echogenic occlusive thrombus is visualized within left proximal femoral vein extending into the popliteal vein with lack of normal color Doppler waveforms and compressibility. Superficial veins: Greater saphenous vein at the saphenofemoral junction is patent without thrombus. Soft tissues: Unremarkable. Other findings: The common and proximal profunda femoral veins are patent without thrombus with Doppler waveforms. Normal compressibility and/or augmentation response. US/[place] [id number] IMPRESSION: Positive for acute deep venous thrombosis within left proximal femoral vein extending into the popliteal vein.
== END 2025-04-17 16:03 | disposition home or self-care (01) ==
PROVIDERS: PCP Family Medicine; Visit Provider Internal Medicine
DX: I82.412 Acute embolism and thrombosis of left femoral vein (principal)
CPT/HCPCS: 93971

== ENCOUNTER 2025-04-25 09:07 | Oncology outpatient (recurring) (ONCR) | payer MEDICARE, SELFPAY ==
[2025-04-17 14:21] LABS: Hematocrit 50.1 % (37-53); Hemoglobin 16.80 g/dL (11.27-16.99); Mean Corpuscular HGB Conc 33.5 g/dL (30-55); Mean Corpuscular Hemoglobin 28.9 pg (27-33); Mean Corpuscular Volume 86.1 fl (82-101); Nucleated Red Blood Cells % 0 %; Platelet Count 126 10^3/cmm (157-399); Red Blood Count 5.82 10^6/uL (3.85-5.65); White Blood Count 6.28 10^3/uL (3.29-11.43)
[2025-04-17 14:35] LABS: Alanine Aminotransferase 14 U/L (0-41); Albumin Level 4.2 g/dL (3.5-5.2); Alkaline Phosphatase 67 U/L (40-130); Anion Gap 15.3 (5-19); Aspartate Amino Transferase 17 U/L (0-40); Blood Urea Nitrogen 26 mg/dL (8-23); Calcium 9.4 mg/dL (8.5-10.5); Carbon Dioxide 25 mmol/L (22-29); Chloride 98 mmol/L (98-107); Creatinine Clr Calc Pharmacy 51.6367; Globulin 2.5 g/dL (1.3-4.6); Glucose 126 mg/dL (65-115); Osmolality Calculated 284 mOsm/kg (285-295); Potassium 4.3 mmol/L (3.5-5.1); Sodium 134 mmol/L (136-145); Total Protein 6.7 g/dL (6.6-8.7)
[2025-04-25 09:37] LABS: Hematocrit 50.3 % (37-53); Hemoglobin 17.40 g/dL (11.27-16.99); Mean Corpuscular HGB Conc 34.6 g/dL (30-55); Mean Corpuscular Hemoglobin 29.8 pg (27-33); Mean Corpuscular Volume 86.3 fl (82-101); Nucleated Red Blood Cells % 0 %; Platelet Count 113 10^3/cmm (157-399); Red Blood Count 5.83 10^6/uL (3.85-5.65); White Blood Count 5.15 10^3/uL (3.29-11.43)
[2025-04-25 09:54] LABS: Alanine Aminotransferase 16 U/L (0-41); Albumin Level 4.0 g/dL (3.5-5.2); Alkaline Phosphatase 62 U/L (40-130); Anion Gap 14.5 (5-19); Aspartate Amino Transferase 17 U/L (0-40); Blood Urea Nitrogen 22 mg/dL (8-23); Calcium 9.5 mg/dL (8.5-10.5); Carbon Dioxide 25 mmol/L (22-29); Chloride 101 mmol/L (98-107); Creatinine Clr Calc Pharmacy 66.8429; Globulin 2.7 g/dL (1.3-4.6); Glucose 153 mg/dL (65-115); Osmolality Calculated 288 mOsm/kg (285-295); Potassium 4.5 mmol/L (3.5-5.1); Sodium 136 mmol/L (136-145); Total Protein 6.7 g/dL (6.6-8.7)
== END 2025-05-12 23:59 | disposition home or self-care (01) ==
PROVIDERS: PCP Family Medicine; Visit Provider Internal Medicine
DX: Z53.9 Procedure and treatment not carried out, unspecified reason; I26.94 Multiple subsegmental thrombotic pulmonary emboli without acute cor pulmonale; R60.0 Localized edema; D68.51 Activated protein C resistance; D75.1 Secondary polycythemia; Z87.891 Personal history of nicotine dependence; Z79.899 Other long term (current) drug therapy; Z79.01 Long term (current) use of anticoagulants
CPT/HCPCS: 36415; 80053; 83615; 85025; 85378; 99213

== ENCOUNTER → 2025-07-16 11:40 | Outpatient (BNVA) | payer MEDICARE, SELFPAY | PROVIDERS: PCP Family Medicine; Visit Provider Internal Medicine Cardiovascular Disease | DX: I25.10 Atherosclerotic heart disease of native coronary artery without angina pectoris (principal); D68.51 Activated protein C resistance; E11.9 Type 2 diabetes mellitus without complications; Z79.84 Long term (current) use of oral hypoglycemic drugs; E03.9 Hypothyroidism, unspecified; I10 Essential (primary) hypertension; Z95.5 Presence of coronary angioplasty implant and graft; Z79.01 Long term (current) use of anticoagulants; Z86.711 Personal history of pulmonary embolism; Z86.718 Personal history of other venous thrombosis and embolism; Z87.891 Personal history of nicotine dependence | CPT/HCPCS: 99214 ==

== ENCOUNTER 2025-07-26 09:23 | Oncology outpatient (recurring) (ONCR) | payer MEDICARE, SELFPAY ==
[2025-07-26 09:46] LABS: Hematocrit 51.6 % (37-53); Hemoglobin 17.20 g/dL (11.27-16.99); Mean Corpuscular HGB Conc 33.3 g/dL (30-55); Mean Corpuscular Hemoglobin 28.5 pg (27-33); Mean Corpuscular Volume 85.6 fl (82-101); Nucleated Red Blood Cells % 0 %; Platelet Count 121 10^3/cmm (157-399); Red Blood Count 6.03 10^6/uL (3.85-5.65); White Blood Count 5.56 10^3/uL (3.29-11.43)
[2025-07-26 10:02] LABS: Alanine Aminotransferase 18 U/L (0-41); Albumin Level 4.3 g/dL (3.5-5.2); Alkaline Phosphatase 55 U/L (40-130); Anion Gap 17.8 (5-19); Aspartate Amino Transferase 16 U/L (0-40); Blood Urea Nitrogen 22 mg/dL (8-23); Calcium 9.4 mg/dL (8.5-10.5); Carbon Dioxide 23 mmol/L (22-29); Chloride 98 mmol/L (98-107); Globulin 2.4 g/dL (1.3-4.6); Glucose 114 mg/dL (65-115); Osmolality Calculated 282 mOsm/kg (285-295); Potassium 4.8 mmol/L (3.5-5.1); Sodium 134 mmol/L (136-145); Total Protein 6.7 g/dL (6.6-8.7)
== END 2025-08-11 23:59 | disposition home or self-care (01) ==
PROVIDERS: Nurse Practitioner; PCP Family Medicine; Visit Provider Internal Medicine
DX: I82.402 Acute embolism and thrombosis of unspecified deep veins of left lower extremity (principal); D68.51 Activated protein C resistance; I25.10 Atherosclerotic heart disease of native coronary artery without angina pectoris; E03.9 Hypothyroidism, unspecified; I10 Essential (primary) hypertension; Z87.891 Personal history of nicotine dependence; Z79.01 Long term (current) use of anticoagulants
CPT/HCPCS: 36415; 80053; 85025; 99213